=== PATIENT | female | born 1980 | race Caucasian/White ===

== ENCOUNTER 2019-03-31 20:52 | Observation (INO) ==
[2019-03-31 21:19] LABS: Basophils # 0.1 K/mm3 (0-0.2); Basophils % 0.9 % (0.1-2.0); Eosinophils # 0.3 K/mm3 (0.0-0.4); Eosinophils % 4.3 % (0.1-12.0); Hematocrit 35.5 % (37.0-47.0); Lymphocytes # 2.5 K/mm3 (0.7-4.5); Lymphocytes % 42.7 % (10-50); Mean Corpuscular HGB Conc 33.9 g/dL (31.8-35.4); Mean Corpuscular Volume 89.4 fl (81-99); Mean Platelet Volume 7.6 fl (7.4-10.4); Monocytes # 0.2 K/mm3 (0.1-1.0); Monocytes % 3.8 % (1.7-9.3); Neutrophils # 2.8 K/mm3 (1.8-7.8); Neutrophils % 48.3 % (37.0-80.0); Platelet Count 258 K/mm3 (142-424); Red Blood Count 3.97 M/mm3 (4.20-5.40); Red Cell Distribution Width 12.4 % (11.5-17.5); White Blood Count 5.8 K/mm3 (4.8-10.8)
--- NOTE | 2019-03-31 21:30 | Emergency Department Note ---
ED Disposition Clinical Impression: Incomplete Disposition: Admitted as Observation Condition on Discharge: Good - Critical Care Critical Care Time: No Attestation: On , the high probability of a clinically significant, sudden or life threatening deterioration of the following system(s) required my full and direct attention, intervention and personal management. The time I documented below is in addition to time spent performing reported procedures but includes the following listed in this critical care notation. Medical Decision Making - Medical Records Medical records reviewed: Yes: I reviewed the patient's medical records. - [place] Inquiry Pt receiving controlled substance: No Vital Signs: 03/31/19 20:54 03/31/19 22:28 Temperature 98.6 F Temperature Source Oral Pulse Rate [Left Radial] 88 Pulse Rate [Orthostatic Lying Left Radial] 83 Pulse Rate [Orthostatic Sitting Left Radial] 95 H Pulse Rate [Orthostatic Standing Left Radial] 107 H Respiratory Rate 18 Blood Pressure [Orthostatic Lying Right Arm] 93/54 L Blood Pressure [Orthostatic Sitting Right Arm] 87/59 L Blood Pressure [Orthostatic Standing Right Arm] 110/52 L Blood Pressure [Right Arm] 120/73 Blood Pressure Mean [Right Arm] 88 02 Sat by Pulse Oximetry 100 Oxygen Delivery Method Room Air - Lab Data Lab results reviewed: Yes: I reviewed the patient's lab results. Lab Results 03/31/19 21:00: WBC 5.8, RBC 3.97 L, Hgb 12.0 L, Hct 35.5 L, MCV 89.4, MCH 30.3, MCHC 33.9, RDW 12.4, Plt Count 258, MPV 7.6, Neut % (Auto) 48.3, Lymph % (Auto) 42.7, Dolores % (Auto) 3.8, Eos % (Auto) 4.3, Baso % (Auto) 0.9, Neut # (Auto) 2.8, Lymph # (Auto) 2.5, Dolores # (Auto) 0.2, Eos # (Auto) 0.3, Baso # (Auto) 0.1 03/31/19 21:00: Sodium 139, Potassium 3.5, Chloride 104, Carbon Dioxide 26, Anion Gap 12.5, BUN 16, Creatinine 0.92, Estimated Creat Clear 79, Estimated GFR 69, Est GFR ( Amer) 84, Glucose 159 H, Calcium 8.4 L, Total Bilirubin 0.4, AST 13 L, ALT 22, Alkaline Phosphatase 69, Total Protein 6.7, Albumin 3.6, Globulin 3.1, Albumin/Globulin Ratio 1.2, HCG, Quant 6341 H 03/31/19 21:00: Blood Type O Negative, Antibody Screen Negative 03/31/19 21:00: Serum HCG, Qual Positive 03/31/19 21:05: Blood Type O Negative, Antibody Screen Negative, Screen Cancelled, Baby's Rh Status Cancelled 03/31/19 22:18: Rhogam Infusion Rhogam release 03/31/19 22:44: WBC 8.2 D, RBC 3.31 L, Hgb 9.9 L D, Hct 29.1 L, MCV 87.8, MCH 29.8, MCHC 34.0, RDW 12.4, Plt Count 220, MPV 7.7, Neut % (Auto) 81.1 H, Lymph % (Auto) 14.8, Dolores % (Auto) 2.4, Eos % (Auto) 1.3, Baso % (Auto) 0.4, Neut # (Auto) 6.6, Lymph # (Auto) 1.2, Dolores # (Auto) 0.2, Eos # (Auto) 0.1, Baso # (Auto) 0.0 Result diagrams: 03/31/19 22:44 03/31/19 21:00 Orders (Tests/Meds): ED MEDICATIONS Generic Name Dose Route Start Last Admin Trade Name Freq PRN Reason Stop Dose Admin Rho Immune Globulin 0 unit 03/31/19 22:14 03/31/19 22:52 Rhogam Ultra-Filtered Plus IM 04/30/19 22:13 1,500 unit NEEDED PRN Administration For Rh Pre/ scrn resu ORDERS Category Date Time Status Urinalysis and Microscopic Stat Lab 03/31/19 21:01 Ordered US OB transvaginal Stat Ultrasound 03/31/19 21:11 Taken - US Data US Images: Pelvis ED US Reviewed: Yes: I discussed the US results w/the radiologist Findings Narrative: yolk sac just above cervix , no fetus or fht - Physician Consults Physician Consulted: cyn Reason -: Admission Female Urogenital HPI - General Chief complaint: Vaginal Bleeding Stated complaint: vaginal bleeding Time Seen by Provider: 03/31/19 21:05 Mode of Arrival: Ambulatory Source of Information: Patient, Spouse, Medical Record Limitations: No Limitations Description of Symptoms (Recalled from ER Triage Doc. by RN): patient states she thinks she is having a miscarriage. complains of vaginal bleeding for 2 weeks. today the bleeding became worse and she has had a lot of vaginal bleeding with cramps. patient states she has problems with hemorrhaging after giving to her children. - History of Present Illness HPI Narrative: pt with crampy abd pain with vag bleeding with hx of preg about 6-8 weeks - she is g10, p9 - saw water reuse program manager this am as she has had spotting over the the last week -no syncope MD Complaint: vaginal bleeding Onset (ago): hour(s) Radiation: suprapubic Severity: severe Quality: cramping Duration: intermittent Vaginal discharge: possible POC : yes Associated symptoms: denies other symptoms - Related Data : 10 Para: 9 Home Medications Medication Instructions Recorded Confirmed No Known Home Medications 03/31/19 03/31/19 Allergies Allergy/AdvReac Type Severity Reaction Status Date / Time No Known Allergies Allergy Verified 03/31/19 21:00 [facility] History - Hepatitis A Screen Drug use history?: No High risk sexual behaviors?: No History of sexually transmitted infection?: No Currently employed?: No Childcare worker?: No Do you have indoor plumbing?: No Do you have electricity?: No Attestation statement:: This patient has been screened for Hepatitis A risk factors. I have reviewed the patient's past medical history: Yes - Social History Alcohol Intake: never Occupational Status: other Housing: other Household Members: other ROS Obtained: Yes All systems reviewed & no additional complaints - Constitutional Constitutional: Denies fever(s) - Eyes Eyes: Denies change in vision - ENT Ears, Nose, Mouth, and Throat: Denies sore throat - Cardiovascular Cardiovascular: Denies chest pain - Respiratory Respiratory: No cough - Gastrointestinal Gastrointestingal: Denies: abdominal pain - Genitourinary Female Genitourinary: Reports as per HPI, Reports abnormal vaginal bleeding - Musculoskeletal Musculoskeletal: Denies joint pain, Denies joint swelling - Integumentary/Breasts Skin/Breast: Denies rash - Neurologic Neurologic: Denies seizure-like activity Physical Exam - General General appearance: alert, in no apparent distress - Head Head exam: normocephalic - Eye Eye exam: Present: PERRL, EOMI. Absent: scleral icterus - ENT ENT exam: Present: mucous membranes dry - Neck Neck exam: Present: trachea midline - Respiratory Respiratory exam: Absent: respiratory distress - Cardiovascular Cardiovascular exam: Present: regular rate - Abdominal Exam Abdominal exam: Present: soft - Speculum exam: Present: vaginal bleeding, other (open os with clot ) - Extremities Exam Extremities exam: Present: full ROM. Absent: calf tenderness - Neurological Exam Neurological exam: Present: alert, CN II-XII intact - Psychiatric Psychiatric exam: Present: normal affect - Skin Skin exam: Absent: rash
[2019-03-31 21:52] LABS: Albumin Level 3.6 gm/dL (3.4-5.0); Albumin/Globulin Ratio 1.2 (1.1-1.8); Anion Gap 12.5 mEq/L (5-15); Bilirubin,Total 0.4 mg/dL (0.2-1.0); Calcium 8.4 mg/dL (8.5-10.1); Globulin 3.1 gm/dl (1.3-3.2); Total Protein,Serum 6.7 gm/dL (6.4-8.2)
[2019-03-31 22:53] LABS: Basophils % 0.4 % (0.1-2.0); Eosinophils # 0.1 K/mm3 (0.0-0.4); Eosinophils % 1.3 % (0.1-12.0); Hematocrit 29.1 % (37.0-47.0); Lymphocytes # 1.2 K/mm3 (0.7-4.5); Lymphocytes % 14.8 % (10-50); Mean Corpuscular Volume 87.8 fl (81-99); Mean Platelet Volume 7.7 fl (7.4-10.4); Monocytes # 0.2 K/mm3 (0.1-1.0); Monocytes % 2.4 % (1.7-9.3); Neutrophils # 6.6 K/mm3 (1.8-7.8); Neutrophils % 81.1 % (37.0-80.0); Platelet Count 220 K/mm3 (142-424); Red Blood Count 3.31 M/mm3 (4.20-5.40); Red Cell Distribution Width 12.4 % (11.5-17.5); White Blood Count 8.2 K/mm3 (4.8-10.8)
[2019-03-31 22:56] LABS: Hemoglobin 9.9 g/dL (12.2-16.2)
[2019-03-31 23:40] LABS: Hematocrit 27.3 % (37.0-47.0); Hemoglobin 9.3 g/dL (12.2-16.2)
[2019-04-01 05:13] LABS: Basophils % 0.4 % (0.1-2.0); Eosinophils % 0.8 % (0.1-12.0); Lymphocytes % 26.7 % (10-50); Mean Corpuscular Volume 90.9 fl (81-99); Mean Platelet Volume 9.7 fl (7.4-10.4); Monocytes # 0.1 K/mm3 (0.1-1.0); Monocytes % 3.8 % (1.7-9.3); Neutrophils # 2.5 K/mm3 (1.8-7.8); Neutrophils % 68.3 % (37.0-80.0); Platelet Count 170 K/mm3 (142-424); Red Cell Distribution Width 12.5 % (11.5-17.5); White Blood Count 3.7 K/mm3 (4.8-10.8)
[2019-04-01 05:17] LABS: Hematocrit 22.7 % (37.0-47.0); Hemoglobin 7.5 g/dL (12.2-16.2)
[2019-04-01 06:55] LABS: Microscopic, Urine URINE MICROSCOPIC (MICROSCOPIC)
[2019-04-01 07:06] LABS: Appearance,Urine CLOUDY (Clear); Bilirubin,Urine Negative (Negative); Blood, Urine 3+ (Negative); Color,Urine RED (Yellow); Glucose,Urine (UA) Negative (Negative); Ketones,Urine TRACE (Negative); Leukocyte Esterase,Urine TRACE (Negative); PH,Urine 6.5 (5.0-8.5); Protein,Urine 3+ (Negative)
--- NOTE | 2019-04-01 07:49 | Pharmacy Consult Notes ---
[facility] VTE Monitoring - Patient Demographics Admission date: 03/31/19 Report Date: 04/01/19 Time: 07:49 Allergies/Adverse Reactions: Patient Allergies No Known Allergies Allergy (Verified 03/31/19 21:00) Height: 1.52 m Weight: 58.23 kg Patient Problems: Current Active Problems Incomplete (Acute) - VTE Risk Labs: VTE Related Lab Results Hgb 7.5 g/dL (12.2-16.2) L* 04/01/19 05:00 Hct 22.7 % (37.0-47.0) L* 04/01/19 05:00 Plt Count 170 K/mm3 (142-424) 04/01/19 05:00 BUN 16 mg/dL (7-18) 03/31/19 21:00 Creatinine 0.92 mg/dL (0.55-1.02) 03/31/19 21:00 Estimated Creat Clear 79 mL/min (50-200) 03/31/19 21:00 VTE Score: 0 - Prophylaxis VTE Prophylaxis Ordered?: Yes Types of VTE Prophylaxis: TEDS Knee High Location of Applied Device: Bilateral Lower Extremeties - VTE Diagnosis Confirmed Treatment or plan recommended: Continue Current Treatment
[2019-04-01 08:00] LABS: Bacteria,Urine 1+ /lpf; RBC,Urine TNTC #/hpf (0-3); WBC,Urine Occasional #/hpf (0-3)
--- NOTE | 2019-04-01 09:03 | History & Physical Report ---
*Admission Date: 03/31/19 *Chief complaint: vaginal bleeding *History of present illness: 38 yo @ approximately 8 wks by LMP [place] patient with care through local community relations director Presented with vaginal bleeding approximately 2 weeks ago, and reports passing clots somewhat daily She was referred for a consultation with an retail bakery manager in [place] for today, but began bleeding so heavily yesterday that she presented to the ED at [facility] Initial ultrasound showed a intrauterine gestational sac with a pole measuring 6 wks, but no cardiac activity Moderate drop in Hgb was noted, and she was admitted for observation (12.0 to 9.9) Rh negative status was treated with rhogam Bleeding continued to be moderate throughout the night, and repeat ultrasound this am shows gestational sac still present in uterus Hgb level 0500 dropped to 7.5 and she is being transfused 2 units PRBCs [facility] History I have reviewed the patient's past medical history: Yes *Have you ever received a pneumonia vaccine?: No *Have you received a flu vaccine this season?: No Other Medical History: Reports: Anemia - *Social History Smoking Status: Never smoker Alcohol Intake: never *Occupational Status:: other Housing: other Household Members: other *Travel in the last 8 weeks: Inside the [facility] Family Hx:: Anemia, Cancer, Heart Attack, Hyperlipidemia, Hypertension, Stroke, Thyroid Disorder : 10 Para: 9 LMP comments: Review of Systems - Review of Systems CONSTITUTIONAL: no fever/chills HEENT: no oral lesions PULMONARY: no shortness of breath or difficulty breathing CV: no racing heart, palpitations or chest pain ABD: no abdominal pain, N/V : + moderate vaginal bleeding SKIN: no new rash or skin lesions EXT: no edema NEURO: no mental status changes PSYCH: no anxiety/depression - *Neurologic Denies seizure-like activity Meds Home Medications Medication Instructions Recorded Confirmed Type Pnv No.95/Ferrous Fum/Folic AC 1 each PO DAILY 04/01/19 04/01/19 History [ Vitamin Tablet] Allergies Allergy/AdvReac Type Severity Reaction Status Date / Time No Known Allergies Allergy Verified 03/31/19 21:00 Exam Vital signs and Labs for Last 24 Hours: Temp Pulse Resp BP Pulse Ox 98.6 F 77 20 90/56 L 99 04/01/19 08:52 04/01/19 08:52 04/01/19 08:52 04/01/19 08:52 04/01/19 08:52 Laboratory Results - last 24 hr 03/31/19 21:00: WBC 5.8, RBC 3.97 L, Hgb 12.0 L, Hct 35.5 L, MCV 89.4, MCH 30.3, MCHC 33.9, RDW 12.4, Plt Count 258, MPV 7.6, Neut % (Auto) 48.3, Lymph % (Auto) 42.7, Brooks % (Auto) 3.8, Eos % (Auto) 4.3, Baso % (Auto) 0.9, Neut # (Auto) 2.8, Lymph # (Auto) 2.5, Brooks # (Auto) 0.2, Eos # (Auto) 0.3, Baso # (Auto) 0.1 03/31/19 21:00: Sodium 139, Potassium 3.5, Chloride 104, Carbon Dioxide 26, Anion Gap 12.5, BUN 16, Creatinine 0.92, Estimated Creat Clear 79, Estimated GFR 69, Est GFR ( Amer) 84, Glucose 159 H, Calcium 8.4 L, Total Bilirubin 0.4, AST 13 L, ALT 22, Alkaline Phosphatase 69, Total Protein 6.7, Albumin 3.6, Globulin 3.1, Albumin/Globulin Ratio 1.2, HCG, Quant 6341 H 03/31/19 21:00: Blood Type O Negative, Antibody Screen Negative 03/31/19 21:00: Serum HCG, Qual Positive 03/31/19 21:05: Blood Type O Negative, Antibody Screen Negative, Screen Cancelled, Baby's Rh Status Cancelled, Crossmatch (AHG) See Detail 03/31/19 22:18: Rhogam Infusion Rhogam release 03/31/19 22:44: WBC 8.2 D, RBC 3.31 L, Hgb 9.9 L D, Hct 29.1 L, MCV 87.8, MCH 29.8, MCHC 34.0, RDW 12.4, Plt Count 220, MPV 7.7, Neut % (Auto) 81.1 H, Lymph % (Auto) 14.8, Brooks % (Auto) 2.4, Eos % (Auto) 1.3, Baso % (Auto) 0.4, Neut # (Auto) 6.6, Lymph # (Auto) 1.2, Brooks # (Auto) 0.2, Eos # (Auto) 0.1, Baso # (Auto) 0.0 03/31/19 23:38: Hgb 9.3 L, Hct 27.3 L 04/01/19 00:00: Blood Type Confirm O Negative 04/01/19 05:00: WBC 3.7 L D, RBC 2.50 L, Hgb 7.5 L*, Hct 22.7 L*, MCV 90.9, MCH 30.0, MCHC 33.0, RDW 12.5, Plt Count 170, MPV 9.7, Neut % (Auto) 68.3, Lymph % (Auto) 26.7, Brooks % (Auto) 3.8, Eos % (Auto) 0.8, Baso % (Auto) 0.4, Neut # (Auto) 2.5, Lymph # (Auto) 1.0, Brooks # (Auto) 0.1, Eos # (Auto) 0.0, Baso # (Auto) 0.0 04/01/19 06:45: Urine Color Red, Urine Appearance Cloudy, Urine pH 6.5, Ur Specific Sullivan 1.020, Urine Protein 3+, Urine Glucose (UA) Negative, Urine Ketones Trace, Urine Blood 3+, Urine Nitrate Positive, Urine Bilirubin Negative, Urine Urobilinogen 1.0, Ur Leukocyte Esterase Trace, Urine RBC Tntc, Urine WBC Occasional, Ur Squamous Epith Cells None, Urine Bacteria 1+ I & O for Last 24 hours: Intake & Output 03/29/19 03/30/19 03/31/19 04/01/19 11:59 11:59 11:59 11:59 Intake Total 5625.61 / 5625.61 Output Total 1800 / 1800 Balance 3825.61 / 3825.61 Weight 128 lb 6 oz Narrative: CONSTITUTIONAL: no acute distress HEENT: mucous membranes moist PULMONARY: breathing unlabored without audible wheezes CV: no visible JVD; normal LE peripheral pulses ABD: soft, NT/ND, no guarding. Gravid uterus. : cervix closed SKIN: no visible rash or lesions HEME: no lymphadenopathy EXT: no edema LEs NEURO: alert/oriented, no altered mental status PSYCH: appropriate mood and demeanor without visible anxiety/depression Assessment and Plan - Assessment and plan all Dx Assessment and Plan for all problems:: Intrauterine with unconfirmed viability status, but likely non-viable with incomplete Anemia secondary to acute blood loss Patient is currently being transfused 2 units PRBCs and may require surgical intervention with D&C Will repeat quantitative HCG with post-transfusion Hgb for patient request to confirm non-viable
[2019-04-01 10:23] LABS: Hematocrit 30.4 % (37.0-47.0)
[2019-04-01 10:34] LABS: Hemoglobin 10.3 g/dL (12.2-16.2)
--- NOTE | 2019-04-01 11:25 | Progress Note ---
[facility] Anesthesia Checklist - Patient Identification Patient Identification: Arm Band, Verbal (Name & ) - Structural Data Admitted From: Inpatient Planned Operative Procedure/s: d and c Consent for Planned Operative Procedure(s) Verified: Yes Verified Documents: History and Physical - NPO Status Verified Time NPO: 00:00 - Additional verifications Patient : No Anesthesia Reactions: No Hx Blood Transfusions: No Blood Transfusion Reaction: No Cephalosporin Allergy: No Previous Colonoscopy: No - Cardiovascular Assessment Heart Sounds: S1 & S2 Pulse Strength: Baseline Pulse Rhythm: Regular Peripheral Edema: No - Airway Assessment C-Spine Mobility Assessed: Yes TMJ Mobility Assessed: Yes Dentition: Good Dentition - Neurological Assessment Level of Consciousness: Awake, Alert, Appropriate Hx Seizures: No Numbness or tingling in extremities: No - Anesthesia Plan Anesthesia Risk discussed: Yes Anesthesia Plan: Verified ASA Class: I Anesthesia Type: General [facility] History I have reviewed the patient's past medical history: Yes *Have you ever received a pneumonia vaccine?: No *Have you received a flu vaccine this season?: No Other Medical History: Reports: Anemia Anesthesia experience/problems:: none - *Social History Smoking Status: Never smoker Alcohol Intake: never Substance Use Type: other *Occupational Status:: other Housing: other Household Members: other *Travel in the last 8 weeks: Inside the [facility] Family Hx:: Anemia, Cancer, Heart Attack, Hyperlipidemia, Hypertension, Stroke, Thyroid Disorder Para: 9 LMP comments:
--- NOTE | 2019-04-01 12:26 | Progress Note ---
[facility] Anesthesia Record Part I Intake, IV Amount: 900 Estimated blood loss (mL): 200 Urine output (mL): 300 Blood Products used (#): none Blood Pressure: 96/57 SaO2: 96 Pulse Rate: 92 Respiratory Rate: 12 Temperature: 98.0 F Patient is:: Drowsy, Stable Stable to PACU at:: 12:22
--- NOTE | 2019-04-01 13:28 | Operative Note ---
Date of procedure: 04/01/19 Pre-op Diagnosis:: 1. Incomplete 2. anemia secondary to acute blood loss Post-op Diagnosis:: same Procedure performed:: Suction D & C Surgeon:: Nakia Victoria MD EXECUTIVE OFFICER:: Que Ramirez Anesthesia: GETA Estimated blood loss (mL): 200 Operative findings:: products of conception at level of cervical os Operative note:: The patient was taken to the OR and general anesthesia administered without difficulty. She was prepped and draped in lithotomy position. Lopez retractors were used to visualize the cervix and a single tooth tenaculum placed on the anterior lip of the cervix. The cervix did not need to be mechanically dilated because the POC had distended the cervix sufficiently to accomodate the suction curette. A size # 7 curved curette was used to evacuate the contents of the uterus. Once the products of conception had been evacuated, sharp curettage was used to ensure that no products remained within the uterine cavity. All instruments were then removed from the patients vagina, she was taken out of lithotomy position, awakened from anesthesia and taken to the PACU in stable condition. EBL: 200cc Condition: stable Disposition: PACU Specimens:: Products of conception Complications:: none
--- NOTE | 2019-04-01 13:47 | Discharge Summary ---
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 Presented with vaginal bleeding approximately 2 weeks ago, and reports passing clots somewhat daily She was referred for a consultation with an mammography technologist in [facility] for today, but began bleeding so heavily yesterday that she presented to the ED at [facility] Initial ultrasound showed a intrauterine gestational sac with a pole measuring 6 wks, but no cardiac activity Moderate drop in Hgb was noted, and she was admitted for observation (12.0 to 9.9) Rh negative status was treated with rhogam Bleeding continued to be moderate throughout the night, and repeat ultrasound this am shows gestational sac still present in uterus Hgb level 0500 dropped to 7.5 and she is being transfused 2 units PRBCs She was taken for suction D&C on 04/01/19 Hospital Course Hospital Course: per HPI Objective Vital signs: Temp Pulse Resp BP Pulse Ox 98.0 F 92 H 12 96/57 L 100 04/01/19 12:26 04/01/19 12:26 04/01/19 12:26 04/01/19 12:26 04/01/19 10:05 Narrative: CONSTITUTIONAL: no acute distress HEENT: mucous membranes moist PULMONARY: breathing unlabored without audible wheezes CV: no tachycardia or visible JVD; normal LE peripheral pulses ABD: soft, ND; appropriately tender but no rebound/guarding : within normal limits SKIN: incision well approximated with no drainage, erythema or induration EXT: no edema LEs NEURO: alert/oriented, no altered mental status PSYCH: appropriate mood and demeanor without anxiety/depression Results Labs on day of discharge: Labs from last 24 hours 04/01/19 04/01/19 04/01/19 10:15 10:15 06:45 WBC RBC Hgb 10.3 L D Hct 30.4 L MCV MCH MCHC RDW Plt Count MPV Neut % (Auto) Lymph % (Auto) [place] % (Auto) Eos % (Auto) Baso % (Auto) Neut # (Auto) Lymph # (Auto) [place] # (Auto) Eos # (Auto) Baso # (Auto) Sodium Potassium Chloride Carbon Dioxide Anion Gap BUN Creatinine Estimated Creat Clear Estimated GFR Est GFR ( Amer) Glucose Calcium Total Bilirubin AST ALT Alkaline Phosphatase Total Protein Albumin Globulin Albumin/Globulin Ratio Serum HCG, Qual HCG, Quant 2741 H Urine Color Red Urine Appearance Cloudy Urine pH 6.5 Ur Specific [place] 1.020 Urine Protein 3+ Urine Glucose (UA) Negative Urine Ketones Trace Urine Blood 3+ Urine Nitrate Positive Urine Bilirubin Negative Urine Urobilinogen 1.0 Ur Leukocyte Esterase Trace Urine RBC Tntc Urine WBC Occasional Ur Squamous Epith Cells None Urine Bacteria 1+ Blood Type Blood Type Confirm Antibody Screen Screen Baby's Rh Status Rhogam Infusion Crossmatch ([facility]) 04/01/19 04/01/19 03/31/19 05:00 00:00 23:38 WBC 3.7 L D RBC 2.50 L Hgb 7.5 L* 9.3 L Hct 22.7 L* 27.3 L MCV 90.9 MCH 30.0 MCHC 33.0 RDW 12.5 Plt Count 170 MPV 9.7 Neut % (Auto) 68.3 Lymph % (Auto) 26.7 [place] % (Auto) 3.8 Eos % (Auto) 0.8 Baso % (Auto) 0.4 Neut # (Auto) 2.5 Lymph # (Auto) 1.0 [place] # (Auto) 0.1 Eos # (Auto) 0.0 Baso # (Auto) 0.0 Sodium Potassium Chloride Carbon Dioxide Anion Gap BUN Creatinine Estimated Creat Clear Estimated GFR Est GFR ( Amer) Glucose Calcium Total Bilirubin AST ALT Alkaline Phosphatase Total Protein Albumin Globulin Albumin/Globulin Ratio Serum HCG, Qual HCG, Quant Urine Color Urine Appearance Urine pH Ur Specific [place] Urine Protein Urine Glucose (UA) Urine Ketones Urine Blood Urine Nitrate Urine Bilirubin Urine Urobilinogen Ur Leukocyte Esterase Urine RBC Urine WBC Ur Squamous Epith Cells Urine Bacteria Blood Type Blood Type Confirm O Negative Antibody Screen Screen Baby's Rh Status Rhogam Infusion Crossmatch ([facility]) 03/31/19 03/31/19 03/31/19 22:44 22:18 21:05 WBC 8.2 D RBC 3.31 L Hgb 9.9 L D Hct 29.1 L MCV 87.8 MCH 29.8 MCHC 34.0 RDW 12.4 Plt Count 220 MPV 7.7 Neut % (Auto) 81.1 H Lymph % (Auto) 14.8 [place] % (Auto) 2.4 Eos % (Auto) 1.3 Baso % (Auto) 0.4 Neut # (Auto) 6.6 Lymph # (Auto) 1.2 [place] # (Auto) 0.2 Eos # (Auto) 0.1 Baso # (Auto) 0.0 Sodium Potassium Chloride Carbon Dioxide Anion Gap BUN Creatinine Estimated Creat Clear Estimated GFR Est GFR ( Amer) Glucose Calcium Total Bilirubin AST ALT Alkaline Phosphatase Total Protein Albumin Globulin Albumin/Globulin Ratio Serum HCG, Qual HCG, Quant Urine Color Urine Appearance Urine pH Ur Specific [place] Urine Protein Urine Glucose (UA) Urine Ketones Urine Blood Urine Nitrate Urine Bilirubin Urine Urobilinogen Ur Leukocyte Esterase Urine RBC Urine WBC Ur Squamous Epith Cells Urine Bacteria Blood Type O Negative Blood Type Confirm Antibody Screen Negative Screen Cancelled Baby's Rh Status Cancelled Rhogam Infusion Rhogam release Crossmatch ([facility]) See Detail 03/31/19 03/31/19 03/31/19 21:00 21:00 21:00 WBC RBC Hgb Hct MCV MCH MCHC RDW Plt Count MPV Neut % (Auto) Lymph % (Auto) [place] % (Auto) Eos % (Auto) Baso % (Auto) Neut # (Auto) Lymph # (Auto) [place] # (Auto) Eos # (Auto) Baso # (Auto) Sodium 139 Potassium 3.5 Chloride 104 Carbon Dioxide 26 Anion Gap 12.5 BUN 16 Creatinine 0.92 Estimated Creat Clear 79 Estimated GFR 69 Est GFR ( Amer) 84 Glucose 159 H Calcium 8.4 L Total Bilirubin 0.4 AST 13 L ALT 22 Alkaline Phosphatase 69 Total Protein 6.7 Albumin 3.6 Globulin 3.1 Albumin/Globulin Ratio 1.2 Serum HCG, Qual Positive HCG, Quant 6341 H Urine Color Urine Appearance Urine pH Ur Specific [place] Urine Protein Urine Glucose (UA) Urine Ketones Urine Blood Urine Nitrate Urine Bilirubin Urine Urobilinogen Ur Leukocyte Esterase Urine RBC Urine WBC Ur Squamous Epith Cells Urine Bacteria Blood Type O Negative Blood Type Confirm Antibody Screen Negative Screen Baby's Rh Status Rhogam Infusion Crossmatch ([facility]) 03/31/19 21:00 WBC 5.8 RBC 3.97 L Hgb 12.0 L Hct 35.5 L MCV 89.4 MCH 30.3 MCHC 33.9 RDW 12.4 Plt Count 258 MPV 7.6 Neut % (Auto) 48.3 Lymph % (Auto) 42.7 [place] % (Auto) 3.8 Eos % (Auto) 4.3 Baso % (Auto) 0.9 Neut # (Auto) 2.8 Lymph # (Auto) 2.5 [place] # (Auto) 0.2 Eos # (Auto) 0.3 Baso # (Auto) 0.1 Sodium Potassium Chloride Carbon Dioxide Anion Gap BUN Creatinine Estimated Creat Clear Estimated GFR Est GFR ( Amer) Glucose Calcium Total Bilirubin AST ALT Alkaline Phosphatase Total Protein Albumin Globulin Albumin/Globulin Ratio Serum HCG, Qual HCG, Quant Urine Color Urine Appearance Urine pH Ur Specific [place] Urine Protein Urine Glucose (UA) Urine Ketones Urine Blood Urine Nitrate Urine Bilirubin Urine Urobilinogen Ur Leukocyte Esterase Urine RBC Urine WBC Ur Squamous Epith Cells Urine Bacteria Blood Type Blood Type Confirm Antibody Screen Screen Baby's Rh Status Rhogam Infusion Crossmatch ([facility]) DS: Diagnosis - Discharge Diagnosis (1) Incomplete Status: Acute (2) with care elsewhere Status: Acute (3) Grand multiparity Status: Acute (4) Rh negative status during Status: Acute (5) Anemia associated with acute blood loss Status: Acute Discharge Plan - Patient Discharge Instructions ACTIVITY: Continue current activity DIET: regular diet Patient Instructions: Dilation and Curettage, Anemia, DI for Miscarriage, DI for a Dilation and Curettage - Follow up Plan Follow up with: Nakia Victoria MD [Staff Physician] - Disposition: Home, Self-Longterm Medications: Home Medications Medication Instructions Recorded Confirmed Type Pnv No.95/Ferrous Fum/Folic AC 1 each PO DAILY 04/01/19 04/01/19 History [ Vitamin Tablet] Prescriptions/Medication Reconciliation: Continued Pnv No.95/Ferrous Fum/Folic AC [ Vitamin Tablet] 1 each PO DAILY - Problem Reconciliation Problems Reviewed?: Yes
--- NOTE | 2019-04-01 14:00 | Progress Note ---
[facility] Anesthesia Record Part II Discharge Time: 12:52 Destination: Obstetric Gynecology Dept PACU nurse assessment reviewed?: Yes Patient Condition:: Good Anesthesia Complications:: None Swallowing reflex intact?: Yes Cyanosis?: No Blood Pressure: 120/63 Pulse Rate: 65 Temperature: 98.0 F Mental Status: Alert & Oriented Pain level:: 2 Nausea and/or vomitting:: None Intake, IV Amount: 0
== END 2019-04-01 15:21 | disposition home or self-care (01) ==
LOC: ER 20:52 → 2ND 20:52
PROVIDERS: ADMIT Obstetrics & Gynecology; ATTEND Obstetrics & Gynecology
CPT/HCPCS: 36415; 76817; 80053; 81001; 84702; 84703; 85014; 85018; 85025; 86850; 96365; 96367; 96372; 96374; 99284; G0378; J2405; J2790; P9016; S0077

== ENCOUNTER → 2020-02-21 16:19 | Outpatient (CLI) | payer SELFPAY | PROVIDERS: Visit Provider Obstetrics & Gynecology | DX: O09.30 Supervision of pregnancy with insufficient antenatal care, unspecified trimester (principal); O32.1XX0 Maternal care for breech presentation, not applicable or unspecified; Z3A.37 37 weeks gestation of pregnancy | CPT/HCPCS: 86403 ==

== ENCOUNTER 2020-02-27 08:10 | Inpatient (IN) | payer SELFPAY ==
[2020-02-27] VITALS (9 sets, daily range): BP systolic 95–127; BP diastolic 51–69; PULSE 63–89; RESP 16–20; TEMP 36–36.9; O2SAT 97–100; BMI 28.5; BMI 28.6
--- NOTE | 2020-02-27 06:05 | US_ITS ---
PROCEDURE: US OB LIMITED POSITION CLINICAL INDICATION: labor Evaluate position. Patient in labor COMPARISON: US US OB TRANSVAGINAL from 04/01/2019 FINDINGS: Limited images submitted. There is breech presentation. The placenta is anterior. TITO is 12 cm. The fetus was not adequately imaged for comment. IMPRESSION: Breech presentation Dictated by: Cesar Delacruz MD 02/27/2020 11:08 Cesar Delacruz MD in OV 02/27/2020 11:08
[2020-02-27 07:23] LABS: Microscopic, Urine URINE MICROSCOPIC (MICROSCOPIC)
--- NOTE | 2020-02-27 07:24 | HMH.ACPN2 ---
Internal Medicine - PN: Subj *Date: 02/27/20 *Time: 07:24 (This 39-year-old 11 para 9 Ab1 [employer] female presents at 38-3/7 weeks in early labor with moderate contractions. She was scheduled for a primary on 03/02/2020 because of a breech presentation, which is confirmed by ultrasound this morning. She states that she has hemorrhaged after each delivery in the past. Her cervix is 5 cm dilated. Discussed this with the patient and her and the plan is for a primary this morning. He is known to be type O Rh-. Because of her past history, she will be typed and crossed. Her current lab work is pending, including Covid screen.) Exam I & O for Last 24 hours: Intake & Output 02/24/20 02/25/20 02/26/20 02/27/20 11:59 11:59 11:59 11:59 Weight 146 lb
[2020-02-27 07:25] LABS: Appearance,Urine CLEAR (Clear); Bilirubin,Urine Negative (Negative); Blood, Urine Negative (Negative); Color,Urine YELLOW (Yellow); Glucose,Urine (UA) Negative (Negative); Ketones,Urine Negative (Negative); Leukocyte Esterase,Urine Negative (Negative); Nitrate,Urine Negative (Negative); Protein,Urine Negative (Negative); Urobilinogen,Urine 0.2 EU/dl (0.2)
[2020-02-27 07:37] LABS: Amphetamine/Metha Screen,Urine Negative ng/ml (<1000); Barbiturates Screen,Urine Negative ng/ml (<200)
[2020-02-27 07:38] LABS: Benzodiazepines Screen,Urine Negative ng/ml (<200)
[2020-02-27 07:39] LABS: Cannabinoid Screen,Urine Negative ng/ml (<50); Cocaine Screen,Urine Negative ng/ml (<300)
[2020-02-27 07:40] LABS: Methadone Screen,Urine Negative ng/ml (<300)
[2020-02-27 07:41] LABS: Basophils % 0.3 % (0.1-2.0); Eosinophils # 0.1 K/mm3 (0.0-0.4); Eosinophils % 1.9 % (0.1-12.0); Hematocrit 34.1 % (37.0-47.0); Hemoglobin 11.1 g/dL (12.2-16.2); Lymphocytes # 1.3 K/mm3 (0.7-4.5); Lymphocytes % 28.2 % (10-50); Mean Corpuscular HGB Conc 32.5 g/dL (31.8-35.4); Mean Corpuscular Hemoglobin 29.5 pg (27.0-31.2); Mean Corpuscular Volume 90.9 fl (81-99); Mean Platelet Volume 7.7 fl (7.4-10.4); Monocytes # 0.2 K/mm3 (0.1-1.0); Neutrophils # 3.1 K/mm3 (1.8-7.8); Neutrophils % 65.7 % (37.0-80.0); Platelet Count 210 K/mm3 (142-424); Red Blood Count 3.75 M/mm3 (4.20-5.40); Red Cell Distribution Width 13.4 % (11.5-17.5); White Blood Count 4.8 K/mm3 (4.8-10.8)
[2020-02-27 07:41] LABS: Opiate Screen,Urine Negative ng/ml (<300); Phencyclidine Screen,Urine Negative ng/ml (<25)
[2020-02-27 07:44] LABS: Activated Partial Thrombo Time 24.9 seconds (23.6-34.0); INR 0.97 (0.9-1.1); Prothrombin Time 10.8 seconds (9.4-11.8)
[2020-02-27 07:48] LABS: WBC,Urine Occasional #/hpf (0-3)
[2020-02-27 07:49] LABS: Bacteria,Urine 1+ /lpf; Yeast,Urine 1+ /lpf
[2020-02-27 07:54] LABS: Coronavirus 19 IgG Antibody Negative (Negative); Coronavirus 19 IgM Antibody Negative (Negative)
[2020-02-27 09:01] LABS: Cord Blood PH 7.34 (7.35-7.45)
--- NOTE | 2020-02-27 09:33 | HMH.OPNOTE ---
Date of procedure: 02/27/20 (G 11, now P 10, Ab1 Kendrick female. Breech presentation. In labor.) Pre-op Diagnosis:: 1. Term intrauterine . 2. Grand multiparity. 3. Breech presentation. 4. Active labor. Post-op Diagnosis:: Same, 70 male (weight in length pending) born by breech extraction at 0850. Procedure performed:: Primary low transverse cervical section. Breech extraction. Surgeon:: Maged Reece MD Penology Professor(s):: Dr. Cristina. HEAD OF MARKETING ADOMETRY:: Rodolfo Marie Anesthesia: spinal Estimated blood loss (mL): 400 Operative findings:: Term intrauterine , anne marie breech presentation. Operative note:: After the patient was prepped and draped in usual fashion and spinal anesthesia was administered, a low Pfannenstiel incision was made across the midline, and the fat and fascia was in the usual fashion, bleeders being clamped and coagulated along the way. The peritoneum was entered with Metzenbaum scissors, and extended above and below. The bladder peritoneum was sharply and bluntly dissected from the area of incision, and the bladder was protected with a bladder blade. The uterus was entered in a low transverse fashion with a knife, and the incision was extended bluntly, bilaterally. The amniotic sac was ruptured for clear fluid. The baby was found to be in a anne marie breech presentation and, with appropriate fundal pressure, a breech extraction was easily carried out. The cord was clamped and cut, 3 vessels were noted to be within the cord, and cord blood was obtained. The cord pH was 7.33. The baby was handed into the arms of the attending machine filler servicer, Dr. Perera, who assigned Apgars of 6 at 1 minute, 8 at 5 minutes, and 8 at 10 minutes to this male (weight in length pending). The baby was taken to the nursery in good condition, along with the father, who had been present in the operating room. The placenta was delivered manually, intact. A ring forceps was used to assure adequate drainage to the cervix; this was then passed off the field, as an unsterile instrument. The uterus was closed in 2 layers, the first a running locked suture of #1 Vicryl as an endometrial layer, followed by a running unlocked suture of #1 Vicryl as a myometrial layer, imbricating over the first. The bladder peritoneum was closed with a running unlocked suture of 2-0 Vicryl. Blood and clots were then swept from the gutters, and the tubes and ovaries were inspected and felt to be normal. The uterus was involuting well, with IV Pitocin running. The peritoneum was grasped with 3 Yusra clamps, and closed with a running semilocked suture of 0 Vicryl. The muscle was approximated with a running unlocked suture of 0 Vicryl. The fascia was closed with a running locked suture of #1 Vicryl. The subcutaneous fat and Cesar's fascia were closed with a running unlocked suture of 2-0 Vicryl. The skin was closed with a subcuticular suture of 3-0 Vicryl, and appropriately dressed. The sponge and needle counts correct. The estimated blood loss was 400 cc. The urine was clear in the Farris catheter. A pelvic examination at the close of the procedure expressed blood and clots from the involuting uterus, with IV Pitocin running. The uterus was noted to be involuting well. The patient tolerated the procedure well and was taken to PACU in excellent condition. Her blood type is O Rh-, and she will be worked up for Rh immunoglobulin eligibility. Her rubella titer is immune. She plans to breast-feed. It should be noted that her COVID-19 antibody screen was negative for IgG and IgM Condition: stable Disposition: floor Specimens:: None. Complications:: None.
--- NOTE | 2020-02-27 10:41 | HMH.ANESCL ---
[facility] Anesthesia Checklist - Patient Identification Patient Identification: Arm Band, Verbal (Name & ) - Structural Data Admitted From: Inpatient Planned Operative Procedure/s: c section Consent for Planned Operative Procedure(s) Verified: Yes Verified Documents: History and Physical - NPO Status Verified Time NPO: 00:00 - Chart Verification Results Verified: CBC - Additional verifications Patient : Yes Anesthesia Reactions: No Hx Blood Transfusions: No Blood Transfusion Reaction: No Cephalosporin Allergy: No Previous Colonoscopy: No - Cardiovascular Assessment Heart Sounds: S1 & S2 Pulse Strength: Baseline Pulse Rhythm: Regular Peripheral Edema: No - Airway Assessment C-Spine Mobility Assessed: Yes TMJ Mobility Assessed: Yes Dentition: Good Dentition - Neurological Assessment Level of Consciousness: Awake, Alert, Appropriate Hx Seizures: No Numbness or tingling in extremities: No - Anesthesia Plan Anesthesia Risk discussed: Yes Anesthesia Plan: Verified ASA Class: II Anesthesia Type: Spinal [facility] History Medical History: Denies:: Seizures *Have you ever received a pneumonia vaccine?: No *Have you received a flu vaccine this season?: No Other Medical History: Reports: Anemia. Denies: Blood Transfusion Reaction Anesthesia experience/problems:: none Other Surgeries: Yes: Dilation and Curettage Amputation: No Fractures: No - *Social History Smoking Status: Never smoker Alcohol Intake: never Substance Use Type: other, denies use *Occupational Status:: other Housing: other Household Members: other *Travel in the last 8 weeks: None Family Hx:: Anemia, Cancer, Heart Attack, Hyperlipidemia, Hypertension, Stroke, Thyroid Disorder
--- NOTE | 2020-02-27 11:31 | HMH.ANESI ---
[facility] Anesthesia Record Part I Intake, IV Amount: 1,450 Estimated blood loss (mL): 600 Urine output (mL): 100 Blood Products used (#): none Blood Pressure: 95/60 SaO2: 99 Pulse Rate: 89 Respiratory Rate: 20 Temperature: 97.7 F Patient is:: Awake, Stable Stable to PACU at:: 09:30
--- NOTE | 2020-02-27 11:32 | P.PN_ITS ---
[facility] Anesthesia Record Part II Discharge Time: 10:00 Destination: Obstetric PACU nurse assessment reviewed?: Yes Patient Condition:: Good Anesthesia Complications:: None Swallowing reflex intact?: Yes Cyanosis?: No Blood Pressure: 98/60 Pulse Rate: 74 Temperature: 97.7 F Mental Status: Alert & Oriented Pain level:: 0 Nausea and/or vomitting:: None Intake, IV Amount: 50
--- NOTE | 2020-02-27 11:36 | SUR.PHASEI ---
Pacu intervention documented by myself for Imtiaz Rice RN
--- NOTE | 2020-02-27 12:52 | HMH.PHAVTE ---
[facility] Pharmacy VTE Monitoring - Patient Demographics Admission date: 02/27/20 Report Date: 02/27/20 Time: 12:52 Allergies/Adverse Reactions: Patient Allergies No Known Allergies Allergy (Verified 02/21/20 10:32) Height: 1.52 m Weight: 66.224 kg - VTE Risk Labs: VTE Related Lab Results Hgb 11.1 g/dL (12.2-16.2) L 02/27/20 06:45 Hct 34.1 % (37.0-47.0) L 02/27/20 06:45 Plt Count 210 K/mm3 (142-424) 02/27/20 06:45 PT 10.8 seconds (9.4-11.8) 02/27/20 06:45 INR 0.97 (0.9-1.1) 02/27/20 06:45 APTT 24.9 seconds (23.6-34.0) 02/27/20 06:45 - Prophylaxis VTE Prophylaxis Ordered?: Yes Types of VTE Prophylaxis: IPCS Thigh High Location of Applied Device: Bilateral Lower Extremeties
[2020-02-27 16:18] LABS: Hematocrit 28.9 % (37.0-47.0)
[2020-02-27 16:20] LABS: Hemoglobin 9.9 g/dL (12.2-16.2)
[2020-02-28] VITALS: BP 94/55; PULSE 70; RESP 16; TEMP 36.8; O2SAT 98
[2020-02-28 04:20] VITALS: BP 96/56; PULSE 78; RESP 17; TEMP 36.8; O2SAT 99
[2020-02-28 05:57] LABS: Hematocrit 32.6 % (37.0-47.0)
[2020-02-28 06:27] LABS: Hemoglobin 11.4 g/dL (12.2-16.2)
[2020-02-28 15:51] VITALS: BP 104/60; PULSE 85; RESP 20; TEMP 36.8; O2SAT 99
--- NOTE | 2020-02-28 15:51 | P.PN_ITS ---
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 and are eager for discharge but have been informed that this will be deferred until tomorrow Exam Vital signs and Labs for Last 24 Hours: Temp Pulse Resp BP Pulse Ox 98.3 F 78 17 96/56 L 99 02/28/20 04:20 02/28/20 04:20 02/28/20 04:20 02/28/20 04:20 02/28/20 04:20 Laboratory Results - last 24 hr 02/27/20 15:58: Hgb 9.9 L D, Hct 28.9 L 02/28/20 05:18: Blood Type O Negative, Antibody Screen Positive, Screen Negative, Baby's Rh Status Positive 02/28/20 05:18: Hgb 11.4 L D, Hct 32.6 L 02/28/20 11:11: Rhogam Infusion Rhogam release I & O for Last 24 hours: Intake & Output 02/26/20 02/27/20 02/28/20 02/29/20 11:59 11:59 11:59 11:59 Intake Total 1500 / 1500 Balance 1500 / 1500 Weight 145 lb 15.983 oz Narrative: CONSTITUTIONAL: no acute distress HEENT: mucous membranes moist PULMONARY: breathing unlabored without audible wheezes CV: no tachycardia or visible JVD; normal LE peripheral pulses ABD: soft, ND; appropriately tender but no rebound/guarding : fundus firm at/below umbilicus SKIN: incision well approximated with no drainage, erythema or induration EXT: 1+ edema LEs NEURO: alert/oriented, no altered mental status PSYCH: appropriate mood and demeanor without anxiety/depression Assessment and Plan (1) Advanced maternal age in Status: Acute Category: Medical (2) Kendrick ancestry Status: Acute Category: Social Hx (3) Anemia complicating Status: Acute Category: Medical Code(s): O99.019 - Anemia complicating , unspecified trimester (4) Breech presentation Status: Acute Category: Medical Code(s): O32.1XX0 - Maternal care for breech presentation, not applicable or unspecified (5) Grand multiparity Problem details: Status: Acute Category: Medical Code(s): Z64.1 - Problems related to multiparity (6) History of hemorrhage Status: Acute Category: Medical Code(s): Z87.59 - Personal history of other complications of , childbirth and the puerperium (7) Late care Status: Acute Category: Medical Code(s): O09.30 - Supervision of with insufficient care, unspecified trimester (8) Rh negative status during Problem details: rhogam 12/29/19 Status: Acute Category: Medical Code(s): O26.899 - Other specified related conditions, unspecified trimester; Z67.91 - Unspecified blood type, Rh negative - Assessment and plan all Dx Assessment and Plan for all problems:: Routine postop care anticipate discharge home tomorrow
[2020-02-28 19:32] VITALS: BP 103/59; PULSE 87; RESP 16; TEMP 36.9; O2SAT 98
[2020-02-28 23:50] VITALS: BP 97/57; PULSE 82; RESP 16; TEMP 36.8; O2SAT 98
--- NOTE | 2020-02-29 08:39 | HMH.DCSUM ---
General - General Admission date:: 02/27/20 Discharge date: 02/29/20 Hospital Course Hospital Course: Patient presented in active labor 5cm dilation Ultrasound confirmed breech position and she was taken to the OR for primary c section Maternal course uncomplicated evaluation with diagnosis of trisomy 21 cardiac screening indicated need for further evaluation and will be seen by pediatric cardiology later today after discharge mother stable for discharge on POD #2 Tolerating regular diet, ambulating and voiding without difficulty Lochia less than menses with no pp hemorrhage mother does not think she needs prescription pain medication but is agreeable to 10 tablets of oxycodone at discharge Objective Vital signs: Temp Pulse Resp BP Pulse Ox 98.3 F 82 16 97/57 L 98 02/28/20 23:50 02/28/20 23:50 02/28/20 23:50 02/28/20 23:50 02/28/20 23:50 Narrative: CONSTITUTIONAL: no acute distress HEENT: mucous membranes moist PULMONARY: breathing unlabored without audible wheezes CV: no tachycardia or visible JVD; normal LE peripheral pulses ABD: soft, ND; appropriately tender but no rebound/guarding : fundus firm at/below umbilicus SKIN: incision well approximated with no drainage, erythema or induration EXT: 1+ edema LEs NEURO: alert/oriented, no altered mental status PSYCH: appropriate mood and demeanor without anxiety/depression Results Labs on day of discharge: Labs from last 24 hours 02/28/20 02/28/20 02/28/20 11:11 05:18 05:18 Blood Type O Negative Antibody Screen Positive Antibody Identification Pending Screen Negative Baby's Rh Status Positive Rhogam Infusion Rhogam release DS: Diagnosis - Discharge Diagnosis (1) Advanced maternal age in Status: Acute (2) Kendrick ancestry Status: Acute (3) Anemia complicating Status: Acute (4) Breech presentation Status: Acute (5) Grand multiparity Status: Acute Problem details: (6) History of hemorrhage Status: Acute (7) Late care Status: Acute (8) Rh negative status during Status: Acute Problem details: rhogam 12/29/19 Discharge Plan - Patient Discharge Instructions ACTIVITY: Continue current activity DIET: regular diet Additional Instructions: No heavy lifting. Nothing in the vagina for 6 weeks. Patient Instructions: Depression, Hemorrhage, DI for , DI for Pre-eclampsia, DI for Surgical Site Infection, [facility] Post Discharge Instructions, Preventing the Spread of Coronavirus Discharge Instructions - Follow up Plan Disposition: Home, Self-Assisted Medications: Home Medications Medication Instructions Recorded Confirmed Type Pnv No.95/Ferrous Fum/Folic AC 1 each PO DAILY 04/01/19 02/27/20 History [ Vitamin Tablet] Prescriptions/Medication Reconciliation: New Acetaminophen [Acetaminophen 325mg tab] 650 mg PO Q4HP PRN tablet PRN Reason: Mild Pain Ibuprofen [Motrin 400mg tablet] 800 mg PO Q6HP PRN tablet PRN Reason: Mild To Moderate Pain Continued Pnv No.95/Ferrous Fum/Folic AC [ Vitamin Tablet] 1 each PO DAILY - Problem Reconciliation Problems Reviewed?: Yes
[2020-02-29 08:44] VITALS: BP 111/74; PULSE 96; RESP 20; TEMP 36.8; O2SAT 98
== END 2020-02-29 09:45 | disposition home or self-care (01) | DRG 788 ==
LOC: OBOUT 08:10 → OB 08:10
PROVIDERS: Admitting Provider Obstetrics & Gynecology; PCP Nurse Practitioner Family; Visit Provider Obstetrics & Gynecology
PROC: 10D00Z1 Extraction of Products of Conception, Low, Open Approach (ICD-10-PCS; CPT 59514; principal; 2020-02-27 09:30)
DX: O32.1XX0 Maternal care for breech presentation, not applicable or unspecified (principal); Z3A.38 38 weeks gestation of pregnancy; Z37.0 Single live birth; Z23 Encounter for immunization
CPT/HCPCS: 59514; 96372; 90384; 36415; 59025; 76815; 80305; 81001; 82800; 85014; 85018; 85025; 85461; 85610; 85730; 86328; 86850; 86870; J2405; J2790

== ENCOUNTER 2021-05-25 20:00 | Emergency (ER) | payer SELFPAY ==
[2021-05-25] VITALS (9 sets, daily range): BP systolic 96–164; BP diastolic 62–88; PULSE 78–87; RESP 16–20; TEMP 36.6–36.7; O2SAT 97–99; BMI 53.8
--- NOTE | 2021-05-25 19:59 | ECG_ITS ---
APPROVED REPORT Exam: Resting ECG HR:89 bpm ECG Measurements Heart Rate 89 AXES PA 136 P 78 QRSd 88 QRS 75 QT 355 T 64 QTc 402 Conclusion SINUS RHYTHM NONSPECIFIC T-WAVE ABNORMALITY BORDERLINE ECG UNCONFIRMED REPORT Electronically signed by : Rodolfo Kramer MD 05/26/2021 09:23:18
--- NOTE | 2021-05-25 20:09 | XR_ITS ---
PROCEDURE INFORMATION: Exam: XR Chest Exam date and time: 05/25/2021 8:09 PM Age: 40 years old Clinical indication: Sternal or substernal pain; Additional info: Chest pain TECHNIQUE: Imaging protocol: XR of the chest. Views: 2 views. COMPARISON: No relevant prior studies available. FINDINGS: Lungs: Unremarkable. No consolidation. Pleural spaces: Unremarkable. No pleural effusion. No pneumothorax. Heart/Mediastinum: Unremarkable. No cardiomegaly. Bones/joints: Unremarkable. IMPRESSION: No acute findings. PROCEDURE INFORMATION: Exam: XR Abdomen Exam date and time: 05/25/2021 8:09 PM Age: 40 years old Clinical indication: Sternal or substernal pain; Additional info: Chest pain TECHNIQUE: Imaging protocol: XR of the abdomen. Views: 2 Views. Upright and supine views. COMPARISON: No relevant prior studies available. FINDINGS: Tubes, catheters and devices: Safety clip visualized on lateral projection overlying the upper abdomen which may be external to the patient. Clinical correlation recommended. Gastrointestinal tract: Normal. No bowel dilation. Intraperitoneal space: Normal. No free air. Bones/joints: Unremarkable for age. IMPRESSION: Safety clip visualized on lateral projection overlying the upper abdomen which may be external to the patient. Clinical correlation recommended.
[2021-05-25 20:25] LABS: Alanine Aminotransferase 20 U/L (12-78); Albumin Level 4.6 g/dl (3.5-5.0); Alkaline Phosphatase 64 U/L (38-126); Aspartate Amino Transferase 29 U/L (14-36); Bilirubin,Direct 0.1 mg/dl (0.0-0.4); Bilirubin,Indirect 0.5 mg/dL (0.0-0.9); Bilirubin,Total 0.6 mg/dl (0.2-1.3); Bilirubin,Unconjugated 0.5 mg/dL (0.0-1.1); Blood Urea Nitrogen 14 mg/dl (7-17); Calcium 9.1 mg/dl (8.4-10.2); Carbon Dioxide 30 mmol/L (22.0-30.0); Chloride 101 mmol/L (98-107); Creatinine Clearance Estimated 91 mL/min (50-200); Estimated Glomerular Filt Rate 112 ml/min (>60); GFR (African American) 135 ML/MIN (>60); Glucose 110 mg/dl (74-100); Sodium 138 mmol/L (136-145); Total Protein,Serum 7.4 g/dl (6.3-8.2)
[2021-05-25 20:31] LABS: Basophils # 0.1 K/mm3 (0-0.2); Basophils % 1.3 % (0.1-2.0); Eosinophils # 0.2 K/mm3 (0.0-0.4); Eosinophils % 2.9 % (0.1-12.0); HCG Qualitative, Serum Negative (Negative); Hematocrit 40.7 % (37.0-47.0); Hemoglobin 13.5 g/dL (12.2-16.2); Lymphocytes # 2.3 K/mm3 (0.7-4.5); Lymphocytes % 36.2 % (10-50); Mean Corpuscular HGB Conc 33.1 g/dL (31.8-35.4); Mean Corpuscular Hemoglobin 30.3 pg (27.0-31.2); Mean Corpuscular Volume 91.6 fl (81-99); Mean Platelet Volume 8.4 fl (7.4-10.4); Monocytes # 0.3 K/mm3 (0.1-1.0); Monocytes % 4.9 % (1.7-9.3); Neutrophils # 3.5 K/mm3 (1.8-7.8); Neutrophils % 54.7 % (37.0-80.0); Platelet Count 294 K/mm3 (142-424); Red Blood Count 4.45 M/mm3 (4.20-5.40); Red Cell Distribution Width 12.6 % (11.5-17.5); White Blood Count 6.5 K/mm3 (4.8-10.8)
[2021-05-25 20:37] LABS: Troponin I < 0.01 ng/ml (0.00-0.034)
--- NOTE | 2021-05-25 20:37 | CT_ITS ---
PROCEDURE INFORMATION: Exam: CTA Chest With Contrast Exam date and time: 05/25/2021 8:37 PM Age: 40 years old Clinical indication: Sternal or substernal pain; Additional info: Cp TECHNIQUE: Imaging protocol: Computed tomographic angiography of the chest with contrast. 3D rendering (Not supervised by radiologist): MIP and/or 3D reconstructed images were created by the technologist. Radiation optimization: All CT scans at this facility use at least one of these dose optimization techniques: automated exposure control; mA and/or kV adjustment per patient size (includes targeted exams where dose is matched to clinical indication); or iterative reconstruction. Contrast material: ISOVUE 370; Contrast volume: 70 ml; Contrast route: INTRAVENOUS (IV); COMPARISON: CR XR CHEST 2V 05/25/2021 9:40 PM FINDINGS: Pulmonary arteries: Normal. No pulmonary emboli. Aorta: No aortic aneurysm. No aortic dissection. Lungs: No consolidation. No masses. Pleural spaces: No pneumothorax. No pleural effusion. Heart: No cardiomegaly. No pericardial effusion. Lymph nodes: No enlarged lymph nodes. Bones/joints: No acute fracture. Soft tissues: No significant swelling. IMPRESSION: No acute findings.
--- NOTE | 2021-05-25 20:40 | HMH.EDCP ---
ED Disposition Clinical Impression: Atypical chest pain Disposition: Home, Self-Care Condition on Discharge: Good Instructions: DI for Atypical Chest Pain Additional Instructions: see pcp for follow up Referrals: Bibi Ford [Primary Care Provider] - - Critical Care Critical Care Time: No Attestation: On 05/25/21, the high probability of a clinically significant, sudden or life threatening deterioration of the following system(s) required my full and direct attention, intervention and personal management. The time I documented below is in addition to time spent performing reported procedures but includes the following listed in this critical care notation. Medical Decision Making - Medical Records Medical records reviewed: Yes: I reviewed the patient's medical records. - [place]man Inquiry Pt receiving controlled substance: No Vital Signs: 05/25/21 20:01 05/25/21 20:21 05/25/21 20:30 Temperature 97.8 F Temperature Source Oral Pulse Rate 82 87 Pulse Rate [Left Radial] 84 Respiratory Rate 18 20 Blood Pressure 108/80 L 98/62 L Blood Pressure [Right Arm] 164/88 H Blood Pressure Mean [Right Arm] 113 Blood Pressure Source Automatic Cuff Automatic Cuff Blood Pressure Source [Right Arm] Automatic Cuff Blood Pressure Position Supine Supine Blood Pressure Position [Right Arm] Standing 02 Sat by Pulse Oximetry 99 98 98 Oxygen Delivery Method Room Air Room Air Room Air 05/25/21 21:34 05/25/21 22:02 Temperature Temperature Source Pulse Rate 80 78 Pulse Rate [Left Radial] Respiratory Rate Blood Pressure 96/63 L 103/67 L Blood Pressure [Right Arm] Blood Pressure Mean [Right Arm] Blood Pressure Source Automatic Cuff Blood Pressure Source [Right Arm] Blood Pressure Position Supine Blood Pressure Position [Right Arm] 02 Sat by Pulse Oximetry 97 97 Oxygen Delivery Method Room Air Room Air - Lab Data Lab results reviewed: Yes: I reviewed the patient's lab results. Lab Results 05/25/21 20:00: Sodium 138, Potassium 4.0, Chloride 101, Carbon Dioxide 30, Anion Gap 11.0, BUN 14, Creatinine 0.60, Estimated Creat Clear 91, Estimated GFR 112, Est GFR ( Amer) 135, Glucose 110 H, Calcium 9.1, Total Bilirubin 0.6, Direct Bilirubin 0.1, Conjugated Bilirubin 0.0, Indirect Bilirubin 0.5, Unconjugated Bilirubin 0.5, AST 29, ALT 20, Alkaline Phosphatase 64, Troponin I < 0.01, Total Protein 7.4, Albumin 4.6 05/25/21 20:00: Serum HCG, Qual Negative 05/25/21 20:00: WBC 6.5, RBC 4.45, Hgb 13.5, Hct 40.7, MCV 91.6, MCH 30.3, MCHC 33.1, RDW 12.6, Plt Count 294, MPV 8.4, Neut % (Auto) 54.7, Lymph % (Auto) 36.2, [place] % (Auto) 4.9, Eos % (Auto) 2.9, Baso % (Auto) 1.3, Neut # (Auto) 3.5, Lymph # (Auto) 2.3, [place] # (Auto) 0.3, Eos # (Auto) 0.2, Baso # (Auto) 0.1 05/25/21 20:00: Amylase 84, Lipase 77 05/25/21 20:00: TSH 3.28, Thyroxine (T4) 7.2 Result diagrams: 05/25/21 20:00 05/25/21 20:00 Orders (Tests/Meds): ED MEDICATIONS Generic Name Dose Route Start Last Admin Trade Name Freq PRN Reason Stop Dose Admin Sodium Chloride 1,000 mls @ 999 mls/hr 05/25/21 20:15 05/25/21 20:16 Sod Chlor 0.9% 1000ml Bag IV 05/25/21 21:15 999 mls/hr .Q1H1M MARCELLE Administration Nitroglycerin 0.4 mg 05/25/21 20:11 05/25/21 20:26 Nitroglycerin 0.4mg Sl Tablet SL 06/24/21 20:10 1 tablet Q5MINP PRN Administration Chest Pain Sodium Chloride 8 ml 05/25/21 20:11 Sodium Chloride 0.9% 10ml Vial IV 06/24/21 20:10 NEEDED PRN dilute pepcid Discontinued Medications Generic Name Dose Route Start Last Admin Trade Name Freq PRN Reason Stop Dose Admin Aspirin 324 mg 05/25/21 20:10 05/25/21 20:15 Aspirin 81mg Chewable Tablet PO 05/25/21 20:11 324 mg ONCE ONE Administration Famotidine 20 mg 05/25/21 20:11 05/25/21 20:15 Famotidine 20mg/2ml Vial IV 05/25/21 20:12 20 mg ONCE ONE Administration Iopamidol 10 ml 05/25/21 22:03 05/25/21 22:05 Iop
[2021-05-25 20:51] LABS: Amylase 84 U/L (30-110)
[2021-05-25 20:52] LABS: Lipase 77 U/L (23-300)
[2021-05-25 21:17] LABS: T4 (Thyroxine) 7.2 ug/dl (5.53-11.0)
[2021-05-25 21:31] LABS: Thyroid Stimulating Hormone 3.28 uIU/mL (0.465-4.68)
--- NOTE | 2021-05-25 21:48 | PC.NURSE ---
PT DENIES PAIN/SHORTNESS OF BREATH AND DIZZINESS. PT UPDATED WITH PLAN OF CARE. WILL CONTINUE TO MONITOR.
--- NOTE | 2021-05-25 23:03 | PC.NURSE ---
PT CONTINUES TO DENY CHEST PAIN AND SHORTNESS OF BREATH. SECOND TROP DRAWN. PT TOLERATED WELL.
[2021-05-25 23:29] LABS: Troponin I < 0.01 ng/ml (0.00-0.034)
== END 2021-05-25 23:47 | disposition home or self-care (01) ==
PROVIDERS: Emergency Provider Emergency Medicine; PCP Nurse Practitioner Family
DX: R07.89 Other chest pain (principal); R42 Dizziness and giddiness; R06.00 Dyspnea, unspecified; R10.13 Epigastric pain; D64.9 Anemia, unspecified; Z82.49 Family history of ischemic heart disease and other diseases of the circulatory system; Z80.9 Family history of malignant neoplasm, unspecified; Z83.42 Family history of familial hypercholesterolemia; Z83.49 Family history of other endocrine, nutritional and metabolic diseases
CPT/HCPCS: 71046; 71275; 80048; 80076; 82150; 83690; 84436; 84443; 84484; 84703; 85025; 93005; 96361; 96365; 96374; 99285; Q9967

== ENCOUNTER → 2021-11-27 15:58 | Outpatient (CLI) | payer SELFPAY ==
[2021-11-27 17:07] LABS: Basophils # 0.1 K/mm3 (0-0.2); Basophils % 0.8 % (0.1-2.0); Eosinophils # 0.6 K/mm3 (0.0-0.4); Eosinophils % 8.7 % (0.1-12.0); Hematocrit 33.1 % (37.0-47.0); Hemoglobin 11.3 g/dL (12.2-16.2); Lymphocytes # 1.7 K/mm3 (0.7-4.5); Lymphocytes % 26.8 % (10-50); Mean Corpuscular HGB Conc 34.3 g/dL (31.8-35.4); Mean Corpuscular Hemoglobin 32.1 pg (27.0-31.2); Mean Corpuscular Volume 93.8 fl (81-99); Mean Platelet Volume 8.4 fl (7.4-10.4); Monocytes # 0.3 K/mm3 (0.1-1.0); Monocytes % 3.9 % (1.7-9.3); Neutrophils # 3.9 K/mm3 (1.8-7.8); Neutrophils % 59.9 % (37.0-80.0); Platelet Count 254 K/mm3 (142-424); Red Blood Count 3.53 M/mm3 (4.20-5.40); Red Cell Distribution Width 13.7 % (11.5-17.5); White Blood Count 6.5 K/mm3 (4.8-10.8)
== END ==
PROVIDERS: PCP Nurse Practitioner Family; Visit Provider Obstetrics & Gynecology
DX: Z34.90 Encounter for supervision of normal pregnancy, unspecified, unspecified trimester (principal)
CPT/HCPCS: 36415; 85025; 86850

== ENCOUNTER 2022-01-29 13:47 | Outpatient (CLI) | payer SELFPAY ==
[2022-01-29 14:22] LABS: Basophils % 0.3 % (0.1-2.0); Eosinophils # 0.2 K/mm3 (0.0-0.4); Eosinophils % 2.5 % (0.1-12.0); Hematocrit 33.4 % (37.0-47.0); Lymphocytes # 1.6 K/mm3 (0.7-4.5); Lymphocytes % 24.8 % (10-50); Mean Corpuscular HGB Conc 32.9 g/dL (31.8-35.4); Mean Corpuscular Hemoglobin 31.1 pg (27.0-31.2); Mean Corpuscular Volume 94.4 fl (81-99); Mean Platelet Volume 8.4 fl (7.4-10.4); Monocytes # 0.3 K/mm3 (0.1-1.0); Monocytes % 4.5 % (1.7-9.3); Neutrophils # 4.4 K/mm3 (1.8-7.8); Neutrophils % 67.9 % (37.0-80.0); Platelet Count 247 K/mm3 (142-424); Red Blood Count 3.54 M/mm3 (4.20-5.40); Red Cell Distribution Width 13.3 % (11.5-17.5); White Blood Count 6.5 K/mm3 (4.8-10.8)
[2022-01-29 16:40] VITALS: BP 101/62; PULSE 81; RESP 18; TEMP 36.7; O2SAT 100
== END 2022-01-29 17:00 | disposition home or self-care (01) ==
LOC: LAB 13:48 → INF 16:24
PROVIDERS: PCP Nurse Practitioner Family; Visit Provider Obstetrics & Gynecology
DX: O26.899 Other specified pregnancy related conditions, unspecified trimester (principal); Z67.91 Unspecified blood type, Rh negative; Z3A.27 27 weeks gestation of pregnancy
CPT/HCPCS: 36415; 85025; 96372; J2790

== ENCOUNTER 2022-03-31 09:21 | Emergency (ER) | payer SELFPAY ==
[2022-03-31 09:45] VITALS: BP 85/59; PULSE 101; RESP 22; TEMP 36.8; O2SAT 98; BMI 30.7
--- NOTE | 2022-03-31 09:55 | PC.NURSE ---
Wallace THAO APRN SPOKE WITH Shanti BARRY RN REGARDING PATIENT 34 WEEKS, BACK PAIN, NAUSEA, AND LOW BP. U/A RUN IN [facility] AND WAS FOUND TO BE NEGATIVE. Wallace THAO APRN ADVISED THAT PATIENT SHOULD BE SENT TO OB DEPARTMENT FOR EVALUATION. FITNESS SUPERVISOR TO GET PATIENT.
--- NOTE | 2022-03-31 09:58 | EXP.UTC ---
Discharge Plan Disposition Patient Disposition: Still a Patient Condition: Fair Prescriptions Prescriptions: No Action PNV cmb#95-ferrous fumarate-FA 1 EACH tablet 1 each PO DAILY Referrals Follow up/Referrals: Bibi Ford [Primary Care Provider] - See instructions Clinical Impressions Clinical Impression: Back pain in Hypotension Qualifiers: Hypotension type: unspecified hypotension type Qualified Code(s): I95.9 - Hypotension, unspecified Discharge ED Provider: Mily Strauss [facility] General Stated complaint: Nausea, lowerback pain Time Seen by Provider: 03/31/22 09:58 History of Present Illness Provider Complaint: Patient is 34 weeks OB states this is her 12th with 10 living children States that she saw OB on and everything looked good States that yesterday she didnt have any appetitie and has been having pain all over her back, nausea and headache States that this morning she was still having nausea and back pain so she came in to get checked not sure if she may be in labor having something else going on Related Data Home Medications Medication Instructions Recorded Confirmed vit no.95-ferrous 1 each PO DAILY Supplement 04/01/19 03/28/22 fumarate 28 mg-folic acid 800 mcg tablet Allergies Allergy/AdvReac Type Severity Reaction Status Date / Time No Known Allergies Allergy Verified 03/28/22 16:00 [facility] Disclaimer: The information contained in this section may have been updated after the patient was seen, as this information can be updated by other users. Medical History 25 weeks gestation of Anemia Surgical History H/O dilation and curettage History of Family History Other Anemia Cancer Coronary artery disease Diabetes Hyperlipidemia Hypertension Stroke Thyroid disorder Social History Smoking Status: Never smoker alcohol intake: never substance use type: denies use and other current occupational status: unemployed Travel in the last 8 weeks: None household members: other housing: other caffeine: Yes ROS Obtained: Yes All systems reviewed & no additional complaints except as documented and Yes Systems reviewed as appropriate & no additional complaints except as documented Constitutional Constitutional: Reports system reviewed and no additional complaints, except as documented, Reports as per HPI, Denies fever(s) and Reports headache(s) ENT Ears, Nose, Mouth, and Throat: Reports system reviewed and no additional complaints, except as documented, Reports as per HPI and Reports headache(s) Cardiovascular Cardiovascular: Reports system reviewed and no additional complaints, except as documented and Reports as per HPI Respiratory Respiratory: Reports system reviewed and no additional complaints, except as documented and Reports as per HPI Gastrointestinal Gastrointestingal: Reports system reviewed and no additional complaints, except as documented and as per HPI; Denies abdominal pain Genitourinary Female Genitourinary: Reports system reviewed and no additional complaints, except as documented, Reports as per HPI, Denies dysuria, Denies pelvic pain, Denies urinary frequency, Denies urinary urgency and Reports other (denies spotting and denies leaking fluids) Musculoskeletal Musculoskeletal: Reports system reviewed and no additional complaints, except as documented, Reports as per HPI and Reports back pain Neurologic Neurologic: Reports headache(s) Physical Exam General General appearance: alert and in no apparent distress Respiratory Respiratory exam: Present normal lung sounds bilaterally; Absent respiratory distress or wheezes Cardiovascular Cardiovascular exam: Present
[2022-03-31 09:59] LABS: Apearance,Urine Clear (Clear); Blood, Urine Negative (Negative); Color,Urine Yellow (Yellow); Glucose,Urine (UA) Negative (Negative); Ketones,Urine Negative (Negative); Protein,Urine Negative (Negative); Specific Gravity, Urine 1.015 (1.005-1.030)
[2022-03-31 10:00] LABS: Bilirubin,Urine Negative (Negative); UTC Leukocyte Esterase,Urine Negative (Negative); UTC Nitrate,Urine Negative (Negative); Urobilinogen,Urine 0.2 EU/dl (0.2)
[2022-03-31 10:06] VITALS: BP 85/59; PULSE 101; RESP 20; TEMP 36.8; O2SAT 98
--- NOTE | 2022-03-31 10:08 | PC.NURSE ---
PATIENT LEFT [facility] WITH TECHNICAL SALES SPECIALIST AT THIS TIME.
== END 2022-03-31 10:08 | disposition still patient (30) ==
PROVIDERS: Emergency Provider Nurse Practitioner; PCP Nurse Practitioner Family
DX: O26.893 Other specified pregnancy related conditions, third trimester (principal); M54.50 Low back pain, unspecified; Z3A.34 34 weeks gestation of pregnancy
CPT/HCPCS: 81003; 99212; G0463

== ENCOUNTER 2022-03-31 10:03 | Outpatient (CLI) | payer SELFPAY ==
[2022-03-31 10:16] VITALS: BMI 30.8
[2022-03-31 10:38] LABS: Amphetamine/Metha Screen,Urine Negative ng/ml (<1000)
[2022-03-31 10:39] LABS: Barbiturates Screen,Urine Negative ng/ml (<200); Benzodiazepines Screen,Urine Negative ng/ml (<200)
[2022-03-31 10:41] LABS: Cannabinoid Screen,Urine Negative ng/ml (<50); Cocaine Screen,Urine Negative ng/ml (<300)
[2022-03-31 10:42] LABS: Methadone Screen,Urine Negative ng/ml (<300)
[2022-03-31 10:43] LABS: Opiate Screen,Urine Negative ng/ml (<300); Phencyclidine Screen,Urine Negative ng/ml (<25)
[2022-03-31 11:00] VITALS: BP 109/67; PULSE 99; RESP 18; TEMP 36.7; O2SAT 97; BMI 30.7
[2022-03-31 11:12] LABS: Basophils % 0.3 % (0.1-2.0); Eosinophils # 0.1 K/mm3 (0.0-0.4); Eosinophils % 1.8 % (0.1-12.0); Hematocrit 31.3 % (37.0-47.0); Hemoglobin 10.9 g/dL (12.2-16.2); Lymphocytes # 0.8 K/mm3 (0.7-4.5); Lymphocytes % 15.8 % (10-50); Mean Corpuscular HGB Conc 34.8 g/dL (31.8-35.4); Mean Corpuscular Hemoglobin 29.8 pg (27.0-31.2); Mean Corpuscular Volume 85.7 fl (81-99); Mean Platelet Volume 7.8 fl (7.4-10.4); Monocytes # 0.2 K/mm3 (0.1-1.0); Monocytes % 3.7 % (1.7-9.3); Neutrophils # 3.8 K/mm3 (1.8-7.8); Neutrophils % 78.3 % (37.0-80.0); Platelet Count 325 K/mm3 (142-424); Red Blood Count 3.65 M/mm3 (4.20-5.40); Red Cell Distribution Width 13.8 % (11.5-17.5); White Blood Count 4.8 K/mm3 (4.8-10.8)
[2022-03-31 11:14] LABS: Chloride 107 mmol/L (98-107); Potassium 3.6 mmoL/L (3.5-5.1); Sodium 134 mmol/L (136-145)
[2022-03-31 11:16] LABS: Alanine Aminotransferase 71 U/L (12-78); Alkaline Phosphatase 191 U/L (38-126); Aspartate Amino Transferase 51 U/L (14-36); Bilirubin,Total 0.9 mg/dl (0.2-1.3); Blood Urea Nitrogen 7 mg/dl (7-17); Creatinine Clearance Estimated 170 mL/min (50-200); Estimated Glomerular Filt Rate 137 ml/min (>60); GFR (African American) 166 ML/MIN (>60)
[2022-03-31 11:17] LABS: Albumin Level 3.5 g/dl (3.5-5.0); Albumin/Globulin Ratio 1.1 (1.1-1.8); Anion Gap 9.6 mEq/L (5-15); Calcium 8.4 mg/dl (8.4-10.2); Carbon Dioxide 21 mmol/L (22.0-30.0); Globulin 3.3 g/dL (1.3-3.2); Glucose 102 mg/dl (74-100); Lactic Acid 0.6 mmol/L (0.7-2.1); Total Protein,Serum 6.8 g/dl (6.3-8.2)
[2022-03-31 12:04] LABS: Influenza A, PCR Not Detected (NotDetected); Influenza B, PCR Not Detected (NotDetected)
[2022-03-31 12:30] LABS: Coronavirus 19, PCR Detected (NotDetected)
== END 2022-03-31 12:40 | disposition home or self-care (01) ==
LOC: OBOUT 10:05 → OB 10:05
PROVIDERS: PCP Nurse Practitioner Family; Visit Provider Nurse Practitioner Obstetrics & Gynecology
DX: O26.893 Other specified pregnancy related conditions, third trimester (principal); Z3A.34 34 weeks gestation of pregnancy; M54.50 Low back pain, unspecified; R11.2 Nausea with vomiting, unspecified
CPT/HCPCS: 59025; 80053; 80305; 83605; 85025; 87040; 96365; 96366; C9803; G0463; U0003; U0005

== ENCOUNTER → 2022-04-11 12:54 | Outpatient (CLI) | payer SELFPAY | PROVIDERS: PCP Obstetrics & Gynecology; Visit Provider Obstetrics & Gynecology | DX: Z34.90 Encounter for supervision of normal pregnancy, unspecified, unspecified trimester (principal) | CPT/HCPCS: 86403 ==

== ENCOUNTER 2022-04-18 04:43 | Inpatient (IN) | payer SELFPAY ==
[2022-04-18] VITALS (13 sets, daily range): BP systolic 97–129; BP diastolic 60–87; PULSE 71–95; RESP 17–24; TEMP 36.1–36.8; O2SAT 97–100; BMI 31.0
[2022-04-18 05:37] LABS: Microscopic, Urine URINE MICROSCOPIC (MICROSCOPIC)
[2022-04-18 05:41] LABS: Coronavirus 19, PCR Not Detected (NotDetected); Influenza A, PCR Not Detected (NotDetected); Influenza B, PCR Not Detected (NotDetected)
[2022-04-18 05:42] LABS: Appearance,Urine CLEAR (Clear); Bilirubin,Urine Negative (Negative); Blood, Urine Negative (Negative); Color,Urine YELLOW (Yellow); Glucose,Urine (UA) Negative (Negative); Ketones,Urine Negative (Negative); Leukocyte Esterase,Urine Negative (Negative); Nitrate,Urine Negative (Negative); PH,Urine 7.5 (5.0-8.5); Protein,Urine Negative (Negative); Urobilinogen,Urine 0.2 EU/dl (0.2)
[2022-04-18 05:47] LABS: Basophils # 0.1 K/mm3 (0-0.2); Basophils % 0.9 % (0.1-2.0); Eosinophils # 0.1 K/mm3 (0.0-0.4); Eosinophils % 2.1 % (0.1-12.0); Hematocrit 33.1 % (37.0-47.0); Hemoglobin 10.8 g/dL (12.2-16.2); Lymphocytes # 1.5 K/mm3 (0.7-4.5); Lymphocytes % 29.9 % (10-50); Mean Corpuscular HGB Conc 32.7 g/dL (31.8-35.4); Mean Corpuscular Volume 85.8 fl (81-99); Mean Platelet Volume 7.7 fl (7.4-10.4); Monocytes # 0.3 K/mm3 (0.1-1.0); Neutrophils # 3.1 K/mm3 (1.8-7.8); Platelet Count 270 K/mm3 (142-424); Red Blood Count 3.86 M/mm3 (4.20-5.40); Red Cell Distribution Width 14.4 % (11.5-17.5); White Blood Count 5.1 K/mm3 (4.8-10.8)
[2022-04-18 05:54] LABS: Barbiturates Screen,Urine Negative ng/ml (<200)
[2022-04-18 05:55] LABS: Benzodiazepines Screen,Urine Negative ng/ml (<200)
[2022-04-18 05:56] LABS: Amphetamine/Metha Screen,Urine Negative ng/ml (<1000)
[2022-04-18 05:57] LABS: Cannabinoid Screen,Urine Negative ng/ml (<50); Methadone Screen,Urine Negative ng/ml (<300)
[2022-04-18 05:58] LABS: Cocaine Screen,Urine Negative ng/ml (<300)
[2022-04-18 05:59] LABS: Opiate Screen,Urine Negative ng/ml (<300)
[2022-04-18 06:00] LABS: Phencyclidine Screen,Urine Negative ng/ml (<25)
--- NOTE | 2022-04-18 10:07 | EXP.HP ---
History of Present Illness *Admission Date: 04/18/22 *Reason for visit:: Induction of labor *History of present illness: 41 yo G12 P 10-0-1-10 admitted for induction of labor at 37 1/7 ? ? ? COLIN 05/08/22 by certain LMP; first visit was at 16 6/7 ? ? ? FH at first visit was c/w LMP dating, but she declined ultrasound evaluation for dating or anatomical survey because of moravian beliefs ? ? ? She also declined routine labs but agreed to CBC and T&S ? ? ? Known Rh negative maternal status from previous pregnancies Most recent was breech presentation at time of active labor and was delivered by primary CS Because of history of breech infant, she agreed to office ultrasound at recent visit; vertex presentation was confirmed but TITO was low at 7.8 She agreed to IOL in the context of oligohydramnios, advanced maternal age, grand-multiparity and risk of rapid labor at home with previous uterine incision She also has an extensive history of hemorrhage with previous home deliveries and previous miscarriage, which required transfusion to compensate for excessive blood loss ? ? ? OB Hx: ? ? ? Full term x 9 ? ? ? Full term LTCS x 1 (breech) ? ? ? SAB x 1 (+D&C for hemorrhage) ? ? ? G11 delivered by LTCS for breech presentation ? ? ? Infant diagnosed with Trisomy 21 after ? ? ? She declined genetic testing or ultrasound assessment with this ? ? She received Rhogam prophylaxis on 01/29/22 and had documented negative antibody screen at that time She declined 1 hr GTT ? ? ? She has been taking po ferrous sulfate for anemia [facility] Disclaimer: The information contained in this section may have been updated after the patient was seen, as this information can be updated by other users. Medical History 25 weeks gestation of Anemia Surgical History H/O dilation and curettage History of Family History Other Anemia Cancer Coronary artery disease Diabetes Hyperlipidemia Hypertension Stroke Thyroid disorder Social History (Updated 04/18/22 @ 06:44 by Marilee Medina RN) Smoking Status: Never smoker alcohol intake: never substance use type: denies use current occupational status: unemployed Travel in the last 8 weeks: None household members: other housing: other caffeine: Yes do you feel safe at home: Yes victim of physical abuse: No victim of emotional abuse: No victim of sexual abuse: No Review of Systems Review of Systems Review of systems:: pertinent systems reviewed and negative unless documented below *Genitourinary Genitourinary: Denies abnormal vaginal bleeding and Reports other (irregular contractions) *Neurologic Neurologic: Denies other visual disturbances Meds Home Medications and Allergies Home Medications Medication Instructions Recorded Confirmed Type vit no.95-ferrous 1 each PO DAILY Supplement 04/01/19 04/11/22 History fumarate 28 mg-folic acid 800 mcg tablet New Prescriptions to Start Prescriptions: Allergies Allergy/AdvReac Type Severity Reaction Status Date / Time No Known Allergies Allergy Verified 04/11/22 15:53 Exam Data for Last 24 hours Vital signs and Labs for Last 24 Hours: Temp Pulse Resp BP Pulse Ox 97.7 F 93 H 19 97/60 L 100 04/18/22 06:34 04/18/22 06:34 04/18/22 06:34 04/18/22 06:34 04/18/22 06:34 Laboratory Results - last 24 hr 04/18/22 04:50: Urine Color Yellow, Urine Appearance Clear, Urine pH 7.5, Ur Specific [place] 1.010, Urine Protein Negative, Urine Glucose (UA) Negative, Urine Ketones Negative, Urine Blood Negative, Urine Nitrate Negative, Urine Bilirubin Negative, Urine Urobilinogen 0.2, Ur Leukocyte Esterase Negative, Urine
--- NOTE | 2022-04-18 13:46 | EXP.LABOR.NO ---
Labor Note Subjective: Date: 04/18/22 Time: 13:46 Comment:: regular contractions, mild intensity still requesting to ambulate in labor tracing has remained reassuring Objective: NST:: Reactive Cervical Dilation:: 3-4 Effacement:: 70% Station: -1 Membranes: artificially ruptured Comment:: IUPC and FSE placed without difficulty or complication Fetus: monitoring type:: Internal Comment:: tracing reassuring Assessment: Labor progressing?: Yes All Active Problems (Updated 01/29/22 @ 17:06 by Paxton Denis RN) Oligohydramnios in oneal in third trimester (Acute) 37 weeks gestation of (Acute) Diseases of the circulatory system complicating , third trimester (Acute) Back pain in (Acute) (Acute) Grand multiparity (Acute) Nondenominational ancestry (Acute) Rh negative status during (Acute) Late care (Acute) History of hemorrhage (Acute) Anemia complicating (Acute) Advanced maternal age in (Acute) History of section (Acute) Trisomy 21, child of prior , currently (Acute) Patient desires vaginal after section () (Acute) Plan: Comment:: Continuous monitoring Pitocin held at 15u Anticipate ()
--- NOTE | 2022-04-18 17:15 | EXP.LABOR.NO ---
Labor Note Subjective: Date: 04/18/22 Time: 17:15 Comment:: regular contractions comfortable with stadol cervix unchanged: 4cm/70%/-1 large amount of active bleeding noted on exam and covering chuk Patient and were advised of concern for possible placental abruption, even though tracing remained reassuring Also counseled for risk of uterine dehiscence Recommend immediate delivery via c section and she agreed/consented Assessment: All Active Problems (Updated 01/29/22 @ 17:06 by Paxton Denis RN) Oligohydramnios in oneal in third trimester (Acute) 37 weeks gestation of (Acute) Diseases of the circulatory system complicating , third trimester (Acute) Back pain in (Acute) (Acute) Grand multiparity (Acute) [place] ancestry (Acute) Rh negative status during (Acute) Late care (Acute) History of hemorrhage (Acute) Anemia complicating (Acute) Advanced maternal age in (Acute) History of section (Acute) Trisomy 21, child of prior , currently (Acute) Patient desires vaginal after section () (Acute)
[2022-04-18 18:08] LABS: Cord Blood PH 7.59 (7.35-7.45)
--- NOTE | 2022-04-18 19:08 | P.PN_ITS ---
[facility] Disclaimer: The information contained in this section may have been updated after the patient was seen, as this information can be updated by other users. Medical History 25 weeks gestation of Anemia Surgical History H/O dilation and curettage History of Family History Other Anemia Cancer Coronary artery disease Diabetes Hyperlipidemia Hypertension Stroke Thyroid disorder Social History Smoking Status: Never smoker alcohol intake: never substance use type: denies use current occupational status: unemployed Travel in the last 8 weeks: None household members: other housing: other caffeine: Yes do you feel safe at home: Yes victim of physical abuse: No victim of emotional abuse: No victim of sexual abuse: No [facility] Anesthesia Checklist Patient Identification Patient Identification: Arm Band and Verbal (Name & ) Structural Data Admitted From: Home Planned Operative Procedure/s: Repeat C/S Consent for Planned Operative Procedure(s) Verified: Yes NPO Status Verified Time NPO: 00:00 Additional verifications Anesthesia Reactions: No Hx Blood Transfusions: No Blood Transfusion Reaction: No Airway Assessment C-Spine Mobility Assessed: Yes TMJ Mobility Assessed: Yes Dentition: Good Dentition Neurological Assessment Level of Consciousness: Awake Hx Seizures: No Numbness or tingling in extremities: No Anesthesia Plan Anesthesia Risk discussed: Yes Anesthesia Plan: Verified ASA Class: II (E) Anesthesia Type: Spinal
--- NOTE | 2022-04-18 19:08 | EXP.ANES.I ---
[facility] Anesthesia Record Part I Anesthesia Record I Intake, IV Amount: 1,000 Estimated blood loss (mL): 800 Urine output (mL): 100 Blood Pressure: 126/74 SaO2: 100 Pulse Rate: 77 Respiratory Rate: 19 Temperature: 97.4 F Patient is:: Awake Stable to PACU at:: 19:03
--- NOTE | 2022-04-18 19:25 | P.OP_ITS ---
Date of procedure: 04/18/22 Pre-op Diagnosis:: 1. 37 1/7 weeks 2. Previous CS, desires TOLAC 3. Placental abruption 4. Anemia Post-op Diagnosis:: Same Procedure performed:: Low Transverse C Section Surgeon:: Nakia Victoria MD FURNITURE ASSOCIATE:: Herminio Valeriozoie Anesthesia: spinal Estimated blood loss (mL): 800 Operative findings:: Living male in vertex presentation Apgars 9 & 9 Placental abruption involving approximately 20% surface area Operative note:: The patient was taken to the OR and spinal was administered without difficulty. She was prepped and draped in normal sterile fashion. A pfannenstiel skin incision was made with the scalpel and carried down to the fascia. The fascia was incised in the midline and sharply dissected off the rectus muscles. The muscles were in the midline and the peritoneum was entered sharply and extended bluntly. The Douglas-O self retaining retractor was placed in the abdomen and a bladder flap was created. The uterus was incised in the lower uterine segment in a transverse fashion and extended bluntly. The was delivered in controlled fashion, without complication or shoulder dystocia. The infant was vigorous at and handed to the awaiting visual education teacher and nursing staff for evaluation after cord clamped and cut. Cord blood was collected and a cord segment was preserved. The placenta was manually extracted and noted to have a visible abruption involving approximately 20% of surface area. The uterus was firm following delivery but she was given methergine 0.2 IM as prophylaxis because of a history of excessive hemorrhage with several prior deliveries. The uterus was repaired with 0-vicryl in a running/locked fashion, in 2 layers. The peritoneum was closed with 2-0 vicryl in a running fashion. The fascia was closed with #1 vicryl in a running fashion. The skin was closed with 2-0 Stratafix in a subcuticular fashion. The patient tolerated the procedure well. Sponge, lap, needle and instrument counts were correct x 2. She was taken to PACU awake and in stable condition. Condition: stable Disposition: PACU Specimens:: Placenta to pathology Complications:: None
--- NOTE | 2022-04-18 20:03 | SUR.PHASEI ---
1920-pt shivering. 1924- 25 mg demerol given ivp for shivering. 1929-pt no longer shivering. 250 cc clear,yellow urine emptied from f/c 1934-detailed report called to Daniel. Pt transported via bed to OB per Jojo MARIEE & Cordell. Pt left in care of Daniel MARIEE. @ .
--- NOTE | 2022-04-18 20:06 | PC.NURSE ---
TAP Block start 1847---stop 1857
[2022-04-19 06:19] LABS: Basophils % 0.3 % (0.1-2.0); Eosinophils # 0.1 K/mm3 (0.0-0.4); Eosinophils % 0.9 % (0.1-12.0); Hematocrit 30.4 % (37.0-47.0); Hemoglobin 10.4 g/dL (12.2-16.2); Lymphocytes # 0.8 K/mm3 (0.7-4.5); Lymphocytes % 10.1 % (10-50); Mean Corpuscular HGB Conc 34.1 g/dL (31.8-35.4); Mean Corpuscular Hemoglobin 29.1 pg (27.0-31.2); Mean Corpuscular Volume 85.2 fl (81-99); Mean Platelet Volume 8.5 fl (7.4-10.4); Monocytes # 0.3 K/mm3 (0.1-1.0); Monocytes % 3.6 % (1.7-9.3); Neutrophils # 6.3 K/mm3 (1.8-7.8); Neutrophils % 85.1 % (37.0-80.0); Platelet Count 207 K/mm3 (142-424); Red Blood Count 3.57 M/mm3 (4.20-5.40); Red Cell Distribution Width 14.5 % (11.5-17.5); White Blood Count 7.4 K/mm3 (4.8-10.8)
[2022-04-19 06:22] LABS: MANUAL DIFFERENTIAL MANUAL DIFFERENTIAL (MANUAL DIFF)
[2022-04-19 07:35] LABS: Eosinophils % 1 % (0-3); Lymphocytes % 12 % (10-50); Monocytes % 4 % (2-9); Neutrophils % 83 % (42-76); Platelet Estimate Normal; RBC Morphology Normal; Total Cells Counted 100
[2022-04-19 08:42] VITALS: BP 94/54; PULSE 81; RESP 16; TEMP 36.4
--- NOTE | 2022-04-19 11:07 | P.PNANES_ITS ---
[facility] Anesthesia Record Part II Anesthesia Record Part II Discharge Time: 19:33 Destination: Obstetric PACU nurse assessment reviewed?: Yes Patient Condition:: Good Anesthesia Complications:: None Swallowing reflex intact?: Yes Cyanosis?: No Blood Pressure: 118/78 Pulse Rate: 74 Temperature: 97.6 F Mental Status: Alert & Oriented Pain level:: 0 Nausea and/or vomitting:: None Intake, IV Amount: 0
[2022-04-19 11:08] VITALS: BP 118/78; PULSE 74; TEMP 36.4
[2022-04-19 16:05] VITALS: BP 99/54; PULSE 86; RESP 16; TEMP 36.6; O2SAT 98
--- NOTE | 2022-04-19 16:42 | EXP.DC.SUM ---
General Admission date:: 04/18/22 Discharge date: 04/19/22 HPI HPI HPI: 41 yo G12 P 10-0-1-10 admitted for induction of labor at 37 03/30 ? ? ? COLIN 05/08/22 by certain LMP; first visit was at 16 6/7 ? ? ? FH at first visit was c/w LMP dating, but she declined ultrasound evaluation for dating or anatomical survey because of shinto beliefs ? ? ? She also declined routine labs but agreed to CBC and T&S ? ? ? Known Rh negative maternal status from previous pregnancies Most recent was breech presentation at time of active labor and was delivered by primary CS Because of history of breech infant, she agreed to office ultrasound at recent visit; vertex presentation was confirmed but TITO was low at 7.8 She agreed to IOL in the context of oligohydramnios, advanced maternal age, grand-multiparity and risk of rapid labor at home with previous uterine incision She also has an extensive history of hemorrhage with previous home deliveries and previous miscarriage, which required transfusion to compensate for excessive blood loss ? ? ? OB Hx: ? ? ? Full term x 9 ? ? ? Full term LTCS x 1 (breech) ? ? ? SAB x 1 (+D&C for hemorrhage) ? ? ? G11 delivered by LTCS for breech presentation ? ? ? Infant diagnosed with Trisomy 21 after ? ? ? She declined genetic testing or ultrasound assessment with this ? ? She received Rhogam prophylaxis on 01/29/22 and had documented negative antibody screen at that time She declined 1 hr GTT ? ? ? She has been taking po ferrous sulfate for anemia Hospital Course Hospital Course Hospital Course: Postop course uncomplicated She and request discharge home on POD #1 She is ambulating and voiding without difficulty She is tolerating a regular diet Lochia is appropriate and pain control sufficient Hgb is 10.4 on POD #1 (10.8 at admission) Exam Data for Last 24 hours Vital signs and Labs for Last 24 Hours: Temp Pulse Resp BP Pulse Ox 97.6 F 74 16 118/78 98 04/19/22 11:08 04/19/22 11:08 04/19/22 08:42 04/19/22 11:08 04/18/22 20:14 Laboratory Results - last 24 hr 04/18/22 17:53: Cord ABG pH 7.59 H* 04/19/22 05:57: WBC 7.4 D, RBC 3.57 L, Hgb 10.4 L, Hct 30.4 L, MCV 85.2, MCH 29.1, MCHC 34.1, RDW 14.5, Plt Count 207, MPV 8.5, Neut % (Auto) 85.1 H, Lymph % (Auto) 10.1, [place] % (Auto) 3.6, Eos % (Auto) 0.9, Baso % (Auto) 0.3, Neut # (Auto) 6.3, Lymph # (Auto) 0.8, [place] # (Auto) 0.3, Eos # (Auto) 0.1, Baso # (Auto) 0.0, Total Counted 100, Neutrophils % (Manual) 83 H, Lymphocytes % (Manual) 12, Monocytes % (Manual) 4, Eosinophils % (Manual) 1, Platelet Estimate Normal, RBC Morphology Normal 04/19/22 05:57: Screen Negative, Baby's Rh Status Positive, Rhogam Infusion Rhogam release I & O for Last 24 hours: Intake & Output 04/17/22 04/18/22 04/19/22 04/20/22 11:59 11:59 11:59 11:59 Intake Total 1000 / 1000 Output Total 1200 / 1200 Balance -200 / -200 Weight 159 lb Constitutional Constitutional: no acute distress *Routine HEENT Exam Head: Present normocephalic Eye: Absent conjunctival icterus or scleral injection ENT: Present mucous membranes moist *Routine Neck Exam Neck: Present supple *Routine Respiratory Exam Respiratory: Present CTA bilaterally *Routine Cardiovascular Exam Cardiovascular: Present RRR *Routine Abdominal Exam Abdominal: Present soft; Absent tenderness or distended *Routine Rectal Exam Patient deferred: visual exam and digital exam *Routine Exam Patient deferred: external exam Comments: Fundus firm below umbilicus *Routine Extremities Exam Extremities: Present edema *Routine Skin Exam Skin: Present intact and dry Comments: Incision intact without erythema or purulent drainage *Routine Neurological Exam Neurological: Present alert and oriented X3 Routine Psychiatric Exam Psychiatric: Present normal affect; Absent depressed Results Data Completed
== END 2022-04-19 20:12 | disposition home or self-care (01) | DRG 786 ==
PROVIDERS: Admitting Provider Obstetrics & Gynecology; PCP Nurse Practitioner Family; Visit Provider Obstetrics & Gynecology
PROC: 10D00Z1 Extraction of Products of Conception, Low, Open Approach (ICD-10-PCS; CPT 59514; principal; 2022-04-18 17:15)
DX: O41.03X0 Oligohydramnios, third trimester, not applicable or unspecified (principal); O45.93 Premature separation of placenta, unspecified, third trimester; Z3A.37 37 weeks gestation of pregnancy; Z37.0 Single live birth; O34.211 Maternal care for low transverse scar from previous cesarean delivery; N85.8 Other specified noninflammatory disorders of uterus; O99.019 Anemia complicating pregnancy, unspecified trimester; D64.9 Anemia, unspecified
CPT/HCPCS: 59620; 36415; 59025; 80305; 81001; 82800; 85007; 85025; 85461; 86850; 87086; 94761; C1758; C9290; C9803; G0283; J0595; J2790; U0003; U0005

== ENCOUNTER 2024-02-28 09:37 | Emergency (ER) | payer SELFPAY ==
--- NOTE | 2024-02-28 09:41 | XR_ITS ---
PROCEDURE INFORMATION: Exam: XR Right Hand Exam date and time: 02/28/2024 11:03 AM Age: 43 years old Clinical indication: Injury or trauma; Fall; Blunt trauma (contusions or hematomas); Hand; Right; Additional info: Fell off of horse TECHNIQUE: Imaging protocol: Radiologic exam of the right hand. Views: 3 or more views. COMPARISON: No relevant prior studies available. FINDINGS: Bones/joints: There is an acute, intra-articular, mildly displaced fracture along the base of the 5th metacarpal. Soft tissues: Normal. IMPRESSION: There is an acute, intra-articular, mildly displaced fracture along the base of the 5th metacarpal.
[2024-02-28 10:00] VITALS: BP 131/80; PULSE 90; RESP 18; TEMP 36.9; O2SAT 100; BMI 25.6
[2024-02-28 12:17] VITALS: BP 131/80; PULSE 90; RESP 18; TEMP 36.9; O2SAT 100
--- NOTE | 2024-02-28 12:19 | EXP.UTC ---
Discharge Plan Disposition Patient Disposition: Home, Self-Care Condition: Good Prescriptions Prescriptions: No Action No Known Home Medications Referrals Follow up/Referrals: Bibi Ford [Primary Care Provider] - See instructions Activity Restrictions/Add. Instructions Additional Instructions/Restrictions: Call Dr. Lamas for a follow up for cast placement at [phone]. Keep splint dry and in place. Clinical Impressions Clinical Impression: Closed fracture of base of fifth metacarpal bone of right hand Qualifiers: Encounter type: initial encounter Fracture alignment: displaced Qualified Code(s): S62.316A - Displaced fracture of base of fifth metacarpal bone, right hand, initial encounter for closed fracture Instructions Patient Instructions: DI for a Hand Fracture Print Language Print Language: [place] Discharge ED Provider: Albina Larry [facility] General Stated complaint: AO right hand pain Mode of Arrival: Ambulatory Source of Information: Patient Limitations: No Limitations Time Seen by Provider: 02/28/24 10:29 Description of Symptoms (Recalled from Triage Doc. by RN): PATIENT C/O INJURY TO RIGHT HAND AFTER JUMPING OFF OF A HORSE LAST NIGHT HEENT Symptoms (Recalled from RN notes): No Resp Symptoms (Recalled from RN notes): No Skin Symptoms (Recalled from RN notes): No MS Symptoms (Recalled from RN notes): Yes Functional Status (Recalled from RN notes): WNL History of Present Illness Provider Complaint: Pt reports that their horse got skittish and threw her and then the buggy was out of control so she jumped and somehow hit her right hand. She complains of pain and swelling Related Data Home Medications ?Medication ?Instructions ?Recorded ?Confirmed No Known Home Medications 02/28/24 02/28/24 Allergies Allergy/AdvReac Type Severity Reaction Status Date / Time No Known Allergies Allergy Verified 04/11/22 15:53 Worker's Comp Is this a Worker's Comp case?: No [facility] Disclaimer: The information contained in this section may have been updated after the patient was seen, as this information can be updated by other users. 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 , currently Surgical History (Updated 04/23/22 @ 00:00 by Jacob Benjamin) H/O dilation and curettage History of Family History Other Anemia Cancer Coronary artery disease Diabetes Hyperlipidemia Hypertension Stroke Thyroid disorder Social History Smoking Status: Never smoker alcohol intake: never substance use type: denies use current occupational status: unemployed Travel in the last 8 weeks: None household members: other housing: other caffeine: Yes do you feel safe at home: Yes victim of physical abuse: No victim of emotional abuse: No victim of sexual abuse: No ROS Obtained: Yes All systems reviewed & no additional complaints except as documented Constitutional Constitutional: Reports system reviewed and no additional complaints, except as documented Eyes Eyes: Reports system reviewed and no additional complaints, except as documented ENT Ears, Nose, Mouth, and Throat: Reports system reviewed and no additional complaints, except as documented Cardiovascular Cardiovascular: Reports system reviewed and no additional complaints, except as documented Respiratory Respiratory: Reports system reviewed and no additional complaints, except as documented Gastrointestinal Gastrointestingal: Reports system reviewed and no additional complaints, except as documented Genitourinary Female Genitourinary: Reports system reviewed and no additional complaints, except as documented Musculoskeletal Musculoskeletal: Reports system reviewed and no additional complaints, except as documented, Reports as per HPI and Reports small joint pain in the hands Integumentary/Breasts Skin/Breast: Reports system reviewed and no additional complaints, except as documented Neurologic Neurologic: Reports system reviewed and no additional complaints, except as documented Endocrine Endocrine: Reports system reviewed and no additional complaints, except as documented Hematologic/Lymphatic Henatologic/Lymphatic: Reports system reviewed and no additional complaints, except as documented Allergic/Immunologic Allergic/Immunologic: Reports system reviewed and no additional complaints, except as documented Physical Exam General General appearance: alert and in no apparent distress Head Head exam: atraumatic and normocephalic Eye Eye exam: Present normal appearance ENT ENT exam: Present normal exam and normal oropharynx Neck Neck exam: Present normal inspection Chest Chest inspection: Present normal inspection and symmetric chest wall rise Respiratory Respiratory exam: Present normal lung sounds bilaterally Cardiovascular Cardiovascular exam: Present regular rate and normal rhythm Abdominal Exam Abdominal exam: Present soft Extremities Exam Extremities exam: Present tenderness and normal capillary refill Expanded Upper Extremity Exam Right: Shoulder exam: Present normal inspection Arm exam: Present normal inspection Elbow exam: Present normal inspection Forearm/Wrist exam: Present normal inspection Hand exam: Present tenderness, swelling and ecchymosis Hand L/R back image: 1. swelling and tenderness Neuromotor exam: Normal wrist extension and thumb opposition Neurosensory exam: Normal radial nerve and ulnar nerve Vascular exam: Normal capillary refill Back Exam Back exam: Present normal inspection Neurological Exam Neurological exam: Present alert and oriented X3 Psychiatric Psychiatric exam: Present normal affect and normal mood Skin Skin exam: Present warm, dry and intact Lymphatic Lymphatic Findings: no adenopathy Medical Decision Making Medical Records Screening: Per USPSTF and CDC recommendations, given the prevalence of disease in our region, it is our hospital?s policy to screen for HIV and viral Hepatitis for all patients aged 18 and over and those with ongoing risk factors. Osman Inquiry Pt receiving controlled substance: No Osman was queried for this patient: No Vital Signs: 02/28/24 10:00 02/28/24 12:17 Temperature 98.4 F 98.4 F Temperature Source Oral Pulse Rate 90 Pulse Rate [Left Brachial] 90 Respiratory Rate 18 18 Blood Pressure 131/80 Blood Pressure [Left Arm] 131/80 Blood Pressure Mean [Left Arm] 97 Blood Pressure Source [Left Arm] Automatic Cuff Blood Pressure Position [Left Arm] Sitting 02 Sat by Pulse Oximetry 100 Oxygen Delivery Method Room Air Orders (Tests/Meds): ORDERS Category Date Time Status XR hand RT min 3V Stat Exams 02/28/24 09:41 Completed Radiology Data #1: Image(s): Hand Image Reviewed: Yes I reviewed the patient's radiology results and Yes I have reviewed radiologist's interpretation Preliminary Findings: Abnormal FINDINGS: Bones/joints: There is an acute, intra-articular, mildly displaced fracture along the base of the 5th metacarpal. Soft tissues: Normal. IMPRESSION: There is an acute, intra-articular, mildly displaced fracture along the base of the 5th metacarpal. Medical Decision Narrative: Called Dr. Lamas with pt x-ray results. He advised ulnar gutter splint and follow up with him on Friday. Procedures Orthopedic Splinting/Casting Injury #1: Side: right Upper Extremity Injury Location: hand Upper Extremity Immobilizer: ulnar gutter Post Cast/Splinting Neuro Status: intact Post Cast/Splinting Vasc Status: intact
== END 2024-02-28 12:29 | disposition home or self-care (01) ==
PROVIDERS: Emergency Provider Nurse Practitioner Family; PCP Nurse Practitioner Family
DX: S62.316A Displaced fracture of base of fifth metacarpal bone, right hand, initial encounter for closed fracture (principal); M79.641 Pain in right hand; V80.010A Animal-rider injured by fall from or being thrown from horse in noncollision accident, initial encounter; Y93.89 Activity, other specified; Y92.9 Unspecified place or not applicable
CPT/HCPCS: 73130; 99212; G0381

== ENCOUNTER 2024-12-15 10:57 | Outpatient (CLI) | payer SELFPAY | END 2024-12-15 23:59 | LOC: LAB.DROPOF 12-17 10:58 | PROVIDERS: PCP Nurse Practitioner Family; Visit Provider Obstetrics & Gynecology | DX: Z34.90 Encounter for supervision of normal pregnancy, unspecified, unspecified trimester (principal); Z3A.00 Weeks of gestation of pregnancy not specified | CPT/HCPCS: 87086 ==

== ENCOUNTER 2024-12-27 10:39 | Outpatient (CLI) | payer SELFPAY ==
[2024-12-27 12:45] VITALS: BP 100/67; PULSE 72; RESP 18; O2SAT 100
[2024-12-27] MEDS: RHO(D) IMMUNE GLOBULIN 1,500 UNIT (300MCG) SYRINGE 300 MCG IM (12:47)
== END 2024-12-27 23:59 | disposition home or self-care (01) ==
LOC: INF 10:39
PROVIDERS: PCP Nurse Practitioner Family; Visit Provider Obstetrics & Gynecology
DX: O26.899 Other specified pregnancy related conditions, unspecified trimester (principal); Z67.91 Unspecified blood type, Rh negative; Z3A.00 Weeks of gestation of pregnancy not specified
CPT/HCPCS: 36415; 96372; J2790

== ENCOUNTER 2025-03-02 11:41 | Outpatient (CLI) | payer SELFPAY ==
[2025-03-02 08:42] VITALS: BMI 27.3
--- NOTE | 2025-03-02 12:08 | ECG_ITS ---
APPROVED REPORT Exam: Resting ECG HR:79 bpm ECG Measurements Heart Rate 79 AXES PA 116 P 68 QRSd 82 QRS 75 QT 357 T 56 QTc 391 Conclusion SINUS RHYTHM WITH SHORT PA INTERVAL BORDERLINE ECG UNCONFIRMED REPORT Electronically signed by : Rodolfo Kramer MD 03/04/2025 08:07:03
[2025-03-02 12:12] LABS: Hematocrit 32.3 % (37.0-47.0); Hemoglobin 11.0 g/dL (12.2-16.2); Immature Granulocytes % 0.3 %; Mean Corpuscular HGB Conc 34.1 g/dL (31.8-35.4); Mean Corpuscular Hemoglobin 30.6 pg (27.0-31.2); Mean Corpuscular Volume 89.7 fl (81-99); Nucleated Red Blood Cells % 0 %; Platelet Count 190 K/mm3 (142-424); Red Blood Count 3.60 M/mm3 (4.20-5.40); Red Cell Distribution Width-SD 41.6 fL; White Blood Count 5.8 K/mm3 (4.8-10.8)
[2025-03-02 12:31] LABS: Alanine Aminotransferase 36 U/L (12-78); Albumin Level 3.8 g/dl (3.5-5.0); Albumin/Globulin Ratio 1.3 (1.1-1.8); Alkaline Phosphatase 135 U/L (38-126); Anion Gap 13.8 mEq/L (5-15); Aspartate Amino Transferase 41 U/L (14-36); Bilirubin,Total 0.6 mg/dl (0.2-1.3); Blood Urea Nitrogen 12 mg/dl (7-17); Calcium 9.1 mg/dl (8.4-10.2); Carbon Dioxide 21 mmol/L (22.0-30.0); Chloride 103 mmol/L (98-107); Creatinine Clearance Estimated 115 mL/min (50-200); Creatinine,Serum 0.70 mg/dl (0.52-1.04); Estimated Glomerular Filt Rate 92 ml/min (>60); GFR (African American) 111 ML/MIN (>60); Globulin 2.9 g/dL (1.3-3.2); Glucose 114 mg/dl (74-100); Potassium 3.8 mmoL/L (3.5-5.1); Sodium 134 mmol/L (136-145); Total Protein,Serum 6.7 g/dl (6.3-8.2)
== END 2025-03-02 23:59 | disposition home or self-care (01) ==
LOC: PREOP 11:42
PROVIDERS: Visit Provider Obstetrics & Gynecology
DX: Z01.810 Encounter for preprocedural cardiovascular examination (principal); Z01.812 Encounter for preprocedural laboratory examination; R94.31 Abnormal electrocardiogram [ECG] [EKG]
CPT/HCPCS: 80053; 85025; 93005

== ENCOUNTER 2025-03-09 05:19 | Inpatient (IN) | payer SELFPAY ==
--- OUTSIDE RECORDS SUMMARY | 2025-03-09 05:23 | XMS_ITS | Data Portability ---
Author Organization [facility] Address [address] [address] Assessment No assessment recorded. Plan of Treatment Reminders Order Date Submit Date Provider Last Modified By Organization Details Last Modified Time Details Appointments None recorded. Lab None recorded. Referral None recorded. Procedures None recorded. Surgeries None recorded. Imaging None recorded. Medication Orders fluconazole 200 mg tablet 2022 023 [facility], [address] [place] [address], [id number], 3 17:59:38 Patient TargetsNo targets recorded. Patient InstructionsNo instructions recorded. Reason for Referral None Reported. Results Created Date Observation Date Name Description Value Unit Range Abnormal Flag Note LastModifiedBy Organization Detail LastModifiedTime 02/28/20 24 02/28/2024 XR, hand No observ ation record ed. [email or web address] [place] [address], [place], [address], 02/29/2024 18:01:22 Result Notes None recorded. Problems Name Problem SNOMED Code Status Onset Date Resolution Date Notes Provider Name and Address Organization Details Recorded Time Periapica l abscess without sinus tract Completed 201905/28/2021 Not Available [facility] 2 20:57:27 Asthenia [id number] Completed 201905/28/2021 Problem Code: R53.1; Problem Code Type: ICD-10; Not Available [facility] 2 20:57:27 detection examinati on Active 2019 Problem Code: Z32.01; Problem Code Type: ICD-10; Not Available [facility] 2 20:57:27 Antepartu m hemorrhag e [id number] Completed 201909/10/2019 Problem Code: 641.93; Problem Code Type: ICD-9; Not Available [facility] 2 20:57:28 Tachycard ia 1112399 Active 2020 Not Available [facility] 2 20:57:27 Precordia l pain 72860377 Active 2021 Problem Code: R07.2; Problem Code Type: ICD-10; Not Available [facility] 2 20:57:27 Acute vaginitis 86111882 Active 2021 Problem Code: N76.0; Problem Code Type: ICD-10; Not Available [facility] 20:57:27 Mild hyperemes is gravidaru m 05328932 Active 2021 Problem Code: O21.0; Problem Code Type: ICD-10; Not Available [facility] 2 20:57:27 Dysuria 13443074 Active 2021 Problem Code: R30.0; Problem Code Type: ICD-10; Not Available [facility] 20:57:27 Problem Notes None recorded. Procedures Surgical History Date Name Laterality Status Provider Name and Address Organization Details Recorded Time 0 dilation and curettage completed Not Available [facility] 11/27/2021 22:56:20 Imaging Results None recorded. Procedure Notes None recorded. Medical Equipment None Reported. Medications Name Sig Start Date Stop Date Status Note LastModified by Organization Details LastModified Time amoxicillin 500 mg capsule take 1 capsule (500 mg) by oral route 3 times per day 03/21 completed Not Available Not Available Not Available azithromycin 250 mg tablet take 1 tablet (250 mg) by oral route once daily for 5 days 05/28 completed Not Available Not Available Not Available fluconazole 150 mg tablet Take 1 tablet every day by oral route for 1 day, for yeast. 2023 active Not Available Not Available Not Avai lable cephalexin 250 mg capsule take 1 capsule (250 mg) by oral route every 6 hours for 7 days 02/28 completed Not Available Not Available Not Available fluconazole 200 mg tablet Take 1 tablet every day by oral route for 3 days. 2022 active Not Available Not Available Not Avai lable promethazine 12.5 mg tablet take 1 tablet (12.5 mg) by oral route every 6 hours as needed for N/V 02/28 completed Not Available Not Available Not Available prednisone 20 mg tablet take 1 tablet (20 mg) by oral route once daily for 5 days 05/28 completed Not Available Not Available Not Available clotrimazole 1 % vaginal cream Use nightly to vagina as needed for yeast 02/28 completed Not Available Not Available Not Available propranolol 10 mg tablet take 1 tablet (10 mg) by oral route every 12 hours 02/28 completed Not Available Not Available Not Available Vitals Date Recorded Body weight Body temperature Heart rate Oxygen saturation Systolic And Diastolic Provider Name and Address Organization Details Last Updated DateTime 3 08976.4 9 g 98.6 [degF] 79 /min 97 % 92/56 mm[Hg] [facility] 3 17:32:18 Social History Question Answer Notes LastModified by Organizat ion Details LastModified Time Tobacco Smoking Status Never Smoker SocialHis toryQuest ion: 'Tobacco/ Alcohol/S upplement s'; SocialHis toryRespo nse: 'Never Smoker'; Not Available [facility] 11/27/2021 22:59:18 Is Your Home Air Conditioned? No Information not available 02/28/2023 In The 14 Days Before Symptom Onset, Have You Had Close Contact With A Laboratory-confir med COVID-19 While That Case Was Ill? No Information not available 02/28/2023 In The 14 Days Before Symptom Onset, Have You Had Close Contact With A Person Who Is Under Investigation For COVID-19 While That Person Was Ill? No Information not available 02/28/2023 Have You Been To An Area Known To Be High Risk For COVID-19? No Information not available 02/28/2023 What Type Of Diet Are You Following? REGULAR Information not available 02/28/2023 What Was The Date Of Your Most Recent Tobacco Screening? 02/28/2023 Information not available 02/28/2023 Do You Use Your Seat Belt Or Car Seat Routinely? No Information not available 02/28/2023 Do You Have Smoke And Carbon Monoxide Detectors In Your Home? No Information not available 02/28/2023 Have You Recently Traveled Abroad? No Information not available 02/28/2023 Do You Have Any Dietary Restrictions? No Information not available 02/28/2023 Sex: Female Functional Status Question Answer Note LastModified by Organizat ion Details LastModified Time Do you use any illicit or recreational drugs? No Information not available 02/28/2023 Do you or have you ever used any other forms of tobacco or nicotine? No Information not available 02/28/2023 What is your level of alcohol consumption? None Information not available 02/28/2023 Are you currently employed? No Information not available 02/28/2023 Mental Status None recorded. Family History Nothing Reported Notes:*Procedure Description : Documented family medical history in mother*Relative: Mother *Procedure Description: Documented family medical history in father*Relative: Father *Procedure Description: Family medical history unremarkable*Relative: Unspecified Relation *Problem: Relative: ''; Medical History No medical history recorded. Gynecological HistoryNo gynecological history recorded. Obstetrics History GPAL:G 0 P 0 0 0 0 Past Encounters Encounter ID Performer Location Encounter Start Date Encounter Closed Date Diagnosis/Indication Diagnosis SNOMED-CT Code Diagnosis ICD10 Code Diagnosis IMO Codes Diagnosis Note [id number] Bibi Ford APRN [address] [address] 02/28/2023 17:15:55 02/28/2023 17:51:38 Intertrigo 21999087 L30.4 Use cornstarch and silicone scar sheets as directed. Keep clean and dry. Health Concerns Section Related Observation LastModified by Organization Detai ls LastModified Time None Recorded Concern Status LastModified by Organization Details LastModified Time None Recorded Advance Directives Directive None Recorded Payers Insurance Date Sequence Insurance Name Policy Number Policy Howell Covered Member ID Howell Member ID Guarantor Name 08/04/2024 SLIDING FEE SCHEDULE - DISCOUNT Nathalia Olivo 02/28/2023 1 *SELF PAY* Ed theo Olivo 08/04/2024 SLIDING FEE SCHEDULE - DISCOUNT Nathalia Olivo Notes Date Note Type Note Provider Name and Address Organization Details Recorded Time 02/28/2023 text/html Rash/Skin LesionReported by PatientHPIFor quality, patient reportsitchy,painful ,weeping,red,drainin g, andfoul smelling. For location, patient reportsabdomen(c/o waxing and waning red rash at c section scar that is itchy and burning with foul odor and clear scant drainage since c section in ). For severity, patient reportsmild. For duration, patient reportshas noted for >3 months. For onset/timing, patient reportsgradual onsetandrecurring. For context, patient reportsno new detergents or skin products,no one else with similar rash, andnot scratching. For alleviating factors, patient reportspowder. For associated symptoms, patient reportsno fever,no cold symptoms,no nausea,no vomiting,no diarrhea,no urinary symptoms,no chills,no fatigue, andno change in weight. For treatment history, patient reportsalternative/h erbal treatment oils with no improvement.ROS as noted in the HPI Bibi Ford APRN [address] [facility], [place], [address], [facility] 03/02/2023 19:09:10 OBGyn Episode No OBEpisode recorded.
[2025-03-09 05:30] VITALS: BMI 27.4
[2025-03-09 05:36] VITALS: BMI 27.4
[2025-03-09 06:07] LABS: Hematocrit 33.0 % (37.0-47.0); Hemoglobin 11.5 g/dL (12.2-16.2); Immature Granulocytes % 0.6 %; Mean Corpuscular HGB Conc 34.8 g/dL (31.8-35.4); Mean Corpuscular Hemoglobin 30.4 pg (27.0-31.2); Mean Corpuscular Volume 87.3 fl (81-99); Nucleated Red Blood Cells % 0 %; Platelet Count 189 K/mm3 (142-424); Red Blood Count 3.78 M/mm3 (4.20-5.40); Red Cell Distribution Width-SD 40.8 fL; White Blood Count 5.3 K/mm3 (4.8-10.8)
[2025-03-09] MEDS: CEFAZOLIN 2GM VIAL 2 GM (07:18)
[2025-03-09] MEDS: 0.9 % SODIUM CHLORIDE 100 ML 50 ML IV (07:18)
--- NOTE | 2025-03-09 07:22 | P.PNANES_ITS ---
[facility] Disclaimer: The information contained in this section may have been updated after the patient was seen, as this information can be updated by other users. 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 , currently Surgical History History of hand surgery H/O dilation and curettage History of Family History Other Anemia Cancer Coronary artery disease Diabetes Hyperlipidemia Hypertension Stroke Thyroid disorder Social History Smoking Status: Never smoker alcohol intake: never substance use type: denies use current occupational status: unemployed Travel in the last 8 weeks?: None household members: other housing: other caffeine: Yes do you feel safe at home: Yes victim of physical abuse: No victim of emotional abuse: No victim of sexual abuse: No Have you lived/traveled outside US in past 30 days?: No Contact w/someone who lives/traveled outside US past 30 days?: No Exposure to someone with infectious disease in past 14 days?: No Do you have a fever (greater than 100.4 F or 38 C)?: No Have you tested positive for COVID-19?: No Exposed to someone with COVID-19 in past 14 days?: No Do you have a sore throat?: No Do you have a cough?: No Do you have any weakness?: No Do you have any diarrhea?: No Are you experiencing any unusual bleeding?: No Do you have any muscle aches/pain?: No Do you have any abdominal pain?: No Are you experiencing loss of taste or smell?: No [facility] Anesthesia Checklist Patient Identification Patient Identification: Arm Band and Verbal (Name & ) Structural Data Admitted From: Home Planned Operative Procedure/s: c section Consent for Planned Operative Procedure(s) Verified: Yes Verified Documents: Surgical Consent and History and Physical NPO Status Verified Time NPO: 00:00 Additional verifications Patient : Yes Anesthesia Reactions: No Hx Blood Transfusions: No Blood Transfusion Reaction: No Airway Assessment Mallampati Score:: Class II C-Spine Mobility Assessed: Yes TMJ Mobility Assessed: Yes Dentition: Good Dentition Neurological Assessment Level of Consciousness: Awake, Alert and Appropriate Hx Seizures: No Numbness or tingling in extremities: No Anesthesia Plan Anesthesia Risk discussed: Yes Anesthesia Plan: Verified ASA Class: II Anesthesia Type: Spinal
--- NOTE | 2025-03-09 07:23 | P.HP_ITS ---
OB - H&P: HPI Antepartum History of Present Illness Chief complaint: Scheduled repeat History of present illness: Mrs Nathalia Olivo is a 44 yo [id number] who presents to [facility] for scheduled repeat . History x 2. History of hemorrhage with prior vaginal delivery and with miscarriage. complicated by AMA and grand multiparity. History of Present Criteria for establishing EDC:: based on LMP only care: limited care Obstetrical complications: none Medical complications: none Labs Blood type: O (-) negative Rubella: unknown RPR/VDRL: unknown GBS status: unknown HBsAG: unknown [facility] Disclaimer: The information contained in this section may have been updated after the patient was seen, as this information can be updated by other users. 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 , currently Surgical History History of hand surgery H/O dilation and curettage History of Family History Other Anemia Cancer Coronary artery disease Diabetes Hyperlipidemia Hypertension Stroke Thyroid disorder Social History Smoking Status: Never smoker alcohol intake: never substance use type: denies use current occupational status: unemployed Travel in the last 8 weeks?: None household members: other housing: other caffeine: Yes do you feel safe at home: Yes victim of physical abuse: No victim of emotional abuse: No victim of sexual abuse: No Have you lived/traveled outside US in past 30 days?: No Contact w/someone who lives/traveled outside US past 30 days?: No Exposure to someone with infectious disease in past 14 days?: No Do you have a fever (greater than 100.4 F or 38 C)?: No Have you tested positive for COVID-19?: No Exposed to someone with COVID-19 in past 14 days?: No Do you have a sore throat?: No Do you have a cough?: No Do you have any weakness?: No Do you have any diarrhea?: No Are you experiencing any unusual bleeding?: No Do you have any muscle aches/pain?: No Do you have any abdominal pain?: No Are you experiencing loss of taste or smell?: No Other Medical History Have you received the Flu Vaccine for this season: No Have you received the Pneumonia Vaccine: No Review of Systems Review of Systems Review of systems:: pertinent systems reviewed and negative unless documented below Meds Home Medications and Allergies Home Medications ?Medication ?Instructions ?Recorded ?Confirmed ?Type No Known Home Medications 02/28/2402/21 History New Prescriptions to Start Prescriptions: Allergies Allergy/AdvReac Type Severity Reaction Status Date / Time No Known Allergies Allergy Verified 03/02/25 11:19 OB - H&P: Exam Constitutional no acute distress and cooperative Routine HEENT Exam Head: Present normocephalic and atraumatic Eye: Absent conjunctivae pink ENT: Present mucous membranes moist Routine Neck Exam Present full ROM Routine Respiratory Exam Present CTA bilaterally and normal respiratory effort Routine Cardiovascular Exam Present RRR Routine Abdominal Exam Present soft (Gravid); Absent tenderness Routine Neurological Exam Present alert, moving all extremities and normal speech Routine Psychiatric Exam Present normal affect and cooperative OB - Results Labs Labs: Short CBC 03/09/25 Range/Units 05:49 WBC 5.3 (4.8-10.8) K/mm3 Hgb 11.5 L (12.2-16.2) g/dL Hct 33.0 L (37.0-47.0) % Plt Count 189 (142-424) K/mm3 OB - A/P Antepartum (1) AMA (advanced maternal age) multigravida 35+: Status: Acute (2) Grand multiparity: Status: Acute (3) [facility] ancestry: Status: Acute (4) History of : Problem details: x 2 Status: Acute (5) History of hemorrhage: Status: Acute Additional Plan Planning to breastfeed?: Yes Additional Information:: Admit to [facility] for scheduled repeat Reviewed risks, benefits, alternatives and expectations of surgery. All questions addressed and answered. She voiced understanding of risks and possible complications. Consent signed Proceed with scheduled repeat
[2025-03-09 09:00] VITALS: BP 118/74; PULSE 77; RESP 18; TEMP 36.7; O2SAT 100
[2025-03-09 09:10] VITALS: BP 113/82; PULSE 76; RESP 18; TEMP 36.6; O2SAT 97
--- NOTE | 2025-03-09 09:13 | P.PNANES_ITS ---
[facility] Anesthesia Record Part I Anesthesia Record I Intake, IV Amount: 1,000 Hydration: Adequate Estimated blood loss (mL): 600 Urine output (mL): 200 Blood Products used (#): none Blood Pressure: 142/106 SaO2: 96 Pulse Rate: 86 Airway Patency: Patent Respiratory Rate: 18 Temperature: 97.5 F Patient is:: Awake and Stable Stable to PACU at:: 09:10
[2025-03-09 09:15] VITALS: BP 142/106; PULSE 86; RESP 18; TEMP 36.4; O2SAT 96
[2025-03-09 09:20] VITALS: BP 128/87; PULSE 74; RESP 18; TEMP 36.6; O2SAT 98
[2025-03-09 09:30] VITALS: BP 126/90; PULSE 68; RESP 18; TEMP 36.6; O2SAT 97
[2025-03-09] MEDS: OXYTOCIN/RINGERS LACTATE 30 UNITS/500 ML BAG 40 UNITS IV (09:30)
--- NOTE | 2025-03-09 10:39 | P.OP_ITS ---
Date of procedure: 03/09/25 Pre-op Diagnosis:: 1. IUP at 39w1d 2. Advanced maternal age 3. Grand multiparity 4. History of x 2 5. History of hemorrhage Post-op Diagnosis:: 1. IUP at 39w1d 2. Advanced maternal age 3. Grand multiparity 4. History of x 2 5. History of hemorrhage Procedure performed:: Repeat low transverse section Surgeon:: Reyna Mcintyre DO Digital Account Coordinator(s):: Shila Couch DO MANPOWER DEVELOPMENT ADVISOR:: Cindy Wright Anesthesia: GETA Estimated blood loss (mL): 600 Clinical Note:: Mrs Nathalia Olivo is a 44 yo [id number] at 39w1d who presents to [facility] for scheduled repeat . History x 2. History of hemorrhage with prior vaginal delivery and with miscarriage. complicated by AMA and grand multiparity. Operative findings:: 1. Live female baby, weighing 6 lb 5 oz, name undecided at time of delivery. Apgars 8 (1 min), 9 (5 min) 2. Omentum adhered to anterior abdominal wall 3. Thin lower uterine segment Operative note:: The risks, benefits and alternatives of the procedure were reviewed with the patient. Informed consent was obtained. Patient was taken to the operating room where spinal anesthesia was placed. The patient received 2 grams of Ancef preoperatively. Patient was placed in dorsal supine position with a leftward t ilt. SCDs in place. Farris catheter was inserted and draining clear urine prior to the start of the procedure. heart tones were obtained. Patient was then prepped and draped in normal sterile fashion. Allis clamp test was performed to ensure adequate anesthesia. A Pfannenstiel skin incision was made 2 cm above pubic symphysis, above prior Pfannenstiel scar. This was carried through to underlying layer of fascia. Fascia was incised in midline, extended laterally with Sierra scissors. Superior aspect of fascial incision was grasped with two Scout clamps, elevated up, and rectus muscle dissected off bluntly and sharply with Sierra scissors. The rectus muscle was then in the midline and the peritoneum was entered bluntly with a digit. Peritoneal incision was then extended superiorly and inferiorly with good visualization of the bladder. Douglas retractor was inserted. The lower uterine segment was incised in a transverse fashion. Clear amniotic fluid was noted. Head was delivered without difficulty. Remainder of body was delivered without difficulty. Mouth and nares were bulb suctioned. Spontaneous cry was noted. Delayed cord clamping was performed for 60 seconds. The umbilical cord was clamped and cut. The infant was handed to awaiting pediatric staff in stable condition. Dr. Perera was present. Apgars were 8(1 min), 9(5 min). Cord blood was obtained. Gentle traction on the umbilical cord and uterine fundal massage delivered the placenta. Placenta was intact. Uterus was cleared of all clots and debris with a moist laparotomy sponge. Corners of the uterine incision were grasped with Allis clamps. The uterine incision was reapproximated with # 1 Vicryl suture in a running, locked stitch. Second layer of the same stitch was used to imbricate the incision. Hemostasis was noted. Posterior cul-de-sac was cleaned with moist laparotomy sponge. Gutters cleared of all clots and debris with a moist laparotomy sponge. Reinspection of the lower uterine segment demonstrated small amount of oozing. Surgicel powder was applied over uterine incision. Hemostasis was noted. At this point all instruments and sponges were removed from the pelvis.? The peritoneum was grasped with Yusra clamps x 3. The peritoneum was reapproximated with 0 Vicryl suture in a running stitch. The corners of the fascia were grasped with Scout clamps, and the fascia was reapproximated with two # 1 Vicryl suture overlapped to the right of midline. Subcutaneous tissue was irrigated with clear return of fluids. The subcutaneous tissue was reapproximated with 3-0 Vicryl. The skin was reapproximated with Insorb monica. Telfa was placed over closed Pfannenstiel skin incision. At the end of the procedure, the uterus was firm with minimal vaginal bleeding. Patient tolerated the procedure well. Instrument, sponges and needle counts were correct x 2. Mom and baby were transported to recovery room in stable condition. Condition: stable Disposition: floor Specimens:: 1. Cord blood Complications:: None
[2025-03-09] MEDS: ACETAMINOPHEN 500MG TAB 1000 MG PO ×2 (11:47→17:18)
--- NOTE | 2025-03-09 12:24 | P.PNANES_ITS ---
[facility] Anesthesia Record Part II Anesthesia Record Part II Discharge Time: 09:30 Destination: Medical Surgical Department PACU nurse assessment reviewed?: Yes Patient Condition:: Good Anesthesia Complications:: None Swallowing reflex intact?: Yes Airway Patency: Patent Cyanosis?: No Blood Pressure: 126/90 SaO2: 97 Respiratory Rate: 18 Pulse Rate: 68 Temperature: 97.8 F Mental Status: Alert & Oriented Pain level:: 2 Nausea and/or vomitting:: None Intake, IV Amount: 0 Hydration: Adequate
[2025-03-09 12:25] VITALS: BP 126/90; PULSE 68; RESP 18; TEMP 36.6; O2SAT 97
[2025-03-09 13:36] LABS: Microscopic,Cath URINE MICROSCOPIC (MICROSCOPIC)
[2025-03-09] MEDS: KETOROLAC 30MG/ML VIAL 30 MG IV ×2 (14:55→21:20)
[2025-03-09] MEDS: PRENATAL MULTIVITAMIN W/IRON 1 EACH PO (17:18)
[2025-03-09 19:03] LABS: Appearance,Urine/Cath CLEAR (Clear); Bilirubin,Cath Negative (Negative); Blood, Urine/Cath Negative (Negative); Color,Urine/Cath YELLOW (Yellow); Glucose,Urine/Cath (UA) Negative (Negative); Ketones,Urine/Cath Negative (Negative); Leukocyte Esterase,Cath Negative (Negative); Nitrate,Cath Negative (Negative); PH,Urine/Cath 7.5 (5.0-8.5); Protein,Urine/Cath Negative (Negative); Specific Gravity, Urine/Cath 1.010 (1.005-1.030); Urobilinogen,Cath 0.2 EU/dl (0.2)
[2025-03-09] MEDS: SENNA 8.6MG TABLET 8.6 MG PO (21:21)
[2025-03-09] MEDS: LANOLIN CREAM 40GM TP (21:21)
[2025-03-10] MEDS: KETOROLAC 30MG/ML VIAL 30 MG IV (05:01)
[2025-03-10] MEDS: ACETAMINOPHEN 500MG TAB 1000 MG PO ×2 (05:02→10:43)
[2025-03-10 05:30] LABS: Hematocrit 29.3 % (37.0-47.0); Immature Granulocytes % 0.3 %; Mean Corpuscular HGB Conc 33.4 g/dL (31.8-35.4); Mean Corpuscular Hemoglobin 30.2 pg (27.0-31.2); Mean Corpuscular Volume 90.2 fl (81-99); Nucleated Red Blood Cells % 0 %; Platelet Count 150 K/mm3 (142-424); Red Blood Count 3.25 M/mm3 (4.20-5.40); Red Cell Distribution Width-SD 42.6 fL; White Blood Count 5.8 K/mm3 (4.8-10.8)
[2025-03-10 05:50] LABS: Hemoglobin 9.8 g/dL (12.2-16.2)
[2025-03-10 08:48] VITALS: BP 105/67; PULSE 76; RESP 17; TEMP 36.7; O2SAT 100
--- NOTE | 2025-03-10 09:29 | EXP.DC.SUM ---
General Admission date:: 03/09/25 Discharge date: 03/10/25 HPI HPI HPI: POD # 1 s/p RLTCS Feeling well. Pain controlled. Breast feeding. Lochia is appropriate. Voiding without difficulty and passing flatus. Tolerating regular diet. Denies fever/chills, chest pain and shortness of breath. No headaches, vision changes, lightheadedness/dizziness. No lower extremity swelling. Ambulating well ad isabella. Hospital Course Hospital Course Hospital Course: Mrs Nathalia Olivo is a 44 yo [id number] who presents to [facility] for scheduled repeat . History x 2. History of hemorrhage with prior vaginal delivery and with miscarriage. complicated by AMA and grand multiparity. She underwent repeat on 03/09/25. She delivered a live female baby, Nathalia, weighing 6 lb 5 oz. Apgars 8 (1 min), 9 (5 min). She did well /postoperatively. Pain controlled. Breast feeding. Light lochia. Voiding without difficulty and passing flatus. Tolerating regular diet. Denies fever/chills, chest pain and shortness of breath. No headaches, dizziness/lightheadedness or vision changes. Vital signs stable, afebrile. Heart regular rate and rhythm. Lungs clear to auscultation. Abdomen soft, nontender. No lower extremity swelling. Ambulating well ad isabella. Normal hospital course. She was discharged to home on POD # 1 with instructions to follow-up in the office in 2 weeks or sooner if needed. Exam Data for Last 24 hours Vital signs and Labs for Last 24 Hours: Temp Pulse Resp BP Pulse Ox O2 Del Method 98.0 F 76 17 105/67 L 100 Room Air 03/10/25 08:48 03/10/25 08:48 03/10/25 08:48 03/10/25 08:48 03/10/25 08:48 03/10/25 08:48 Laboratory Results - last 24 hr 03/09/25 07:30: Urine Color Yellow, Urine Appearance Clear, Urine pH 7.5, Ur Specific [place] 1.010, Urine Protein Negative, Urine Glucose (UA) Negative, Urine Ketones Negative, Urine Blood Negative, Urine Nitrate Negative, Urine Bilirubin Negative, Urine Urobilinogen 0.2, Ur Leukocyte Esterase Negative, Urine RBC None, Urine WBC None, Ur Squamous Epith Cells None, Urine Bacteria None 03/10/25 05:04: WBC 5.8, RBC 3.25 L, Hgb 9.8 L D, Hct 29.3 L, MCV 90.2, MCH 30.2, MCHC 33.4, RDW 13.0, Plt Count 150, MPV 9.6, Neut % (Auto) 62.7, Lymph % (Auto) 27.3, Anson % (Auto) 8.5, Eos % (Auto) 0.9, Baso % (Auto) 0.3, Neut # (Auto) 3.6, Lymph # (Auto) 1.6, Anson # (Auto) 0.5, Eos # (Auto) 0.1, Baso # (Auto) 0.0, Screen Negative, Baby's Rh Status Positive I & O for Last 24 hours: Intake & Output 03/07/25 03/08/25 03/09/25 03/10/25 23:59 23:59 23:59 23:59 Intake Total 1417.333 / 1417.333 Output Total 800 / 800 Balance 617.333 / 617.333 Weight 155 lb Constitutional Constitutional: no acute distress and cooperative *Routine HEENT Exam Head: Present normocephalic and atraumatic Eye: Present conjunctivae pink ENT: Present mucous membranes moist *Routine Neck Exam Neck: Present full ROM *Routine Respiratory Exam Respiratory: Present CTA bilaterally and normal respiratory effort *Routine Cardiovascular Exam Cardiovascular: Present RRR *Routine Abdominal Exam Abdominal: Present soft and normoactive bowel sounds; Absent tenderness or distended Comments: Pfannenstiel incision clean/dry/intact *Routine Rectal Exam Patient deferred: visual exam *Routine Exam Patient deferred: external exam *Routine Extremities Exam Extremities: Present full ROM; Absent edema or calf tenderness *Routine Neurological Exam Neurological: Present alert, moving all extremities and normal speech Routine Psychiatric Exam Psychiatric: Present normal affect and cooperative Results Data Completed and Pending Labs on day of discharge: Labs from last 24 hours 03/10/25 03/09/25 05:04 07:30 WBC 5.8 RBC 3.25 L Hgb 9.8 L D Hct 29.3 L MCV 90.2 MCH 30.2 MCHC 33.4 RDW 13.0 Plt Count 150 MPV 9.6 Neut % (Auto) 62.7 Lymph % (Auto) 27.3 Anson % (Auto) 8.5 Eos % (Auto) 0.9 Baso % (Auto) 0.3 Neut # (Auto) 3.6 Lymph # (Auto) 1.6 Anson # (Auto) 0.5 Eos # (Auto) 0.1 Baso # (Auto) 0.0 Urine Color Yellow Urine Appearance Clear Urine pH 7.5 Ur Specific [place] 1.010 Urine Protein Negative Urine Glucose (UA) Negative Urine Ketones Negative Urine Blood Negative Urine Nitrate Negative Urine Bilirubin Negative Urine Urobilinogen 0.2 Ur Leukocyte Esterase Negative Urine RBC None Urine WBC None Ur Squamous Epith Cells None Urine Bacteria None Screen Negative Baby's Rh Status Positive DS: Diagnosis Discharge Diagnosis (1) S/P : Status: Acute Code(s): Z98.891 - History of uterine scar from previous surgery (2) AMA (advanced maternal age) multigravida 35+: Status: Acute Code(s): O09.529 - Supervision of elderly multigravida, unspecified trimester Qualifiers: Trimester: second trimester Qualified Code(s): O09.522 - Supervision of elderly multigravida, second trimester (3) Grand multiparity: Status: Acute Code(s): Z64.1 - Problems related to multiparity (4) Tenriism ancestry: Status: Acute (5) History of : Status: Acute Code(s): Z98.891 - History of uterine scar from previous surgery Problem details: x 2 (6) History of hemorrhage: Status: Acute Code(s): Z87.59 - Personal history of other complications of , childbirth and the puerperium Meds Home Medications and Allergies Home Medications ?Medication ?Instructions ?Recorded ?Confirmed ?Type ibuprofen 800 mg tablet 800 mg PO Q8H PRN pain #20 tabs 03/10/25 Rx oxycodone 5 mg tablet 5 mg PO Q4HP PRN Moderate Pain 03/10/25 Rx (4-6) #20 tabs New Prescriptions to Start Prescriptions: ibuprofen Canan,Reyna oxycodone Canan,Reyna Allergies Allergy/AdvReac Type Severity Reaction Status Date / Time No Known Allergies Allergy Verified 03/02/25 11:19 Discharge Plan Disposition Patient Disposition: Home, Self-Care Condition: Good Discharge Order Discharge Orders: Discharge Order (Routine); Ordered 03/10/25 Ordered By: Reyna Mcintyre Follow up Plan Follow up with: Reyna Mcintyre DO [Staff Physician, [employer]] - 03/30/25 10:00 am Prescriptions/Medication Reconciliation: New oxycodone 5 mg Tablet 5 mg PO Q4HP PRN (Reason: Moderate Pain (4-6)) Qty: 20 0RF ibuprofen 800 mg tablet 800 mg PO Q8H PRN (Reason: pain) Qty: 20 0RF Problem Reconciliation Problems Reviewed?: Yes Patient Discharge Instructions ACTIVITY: Limited activity DIET: regular diet Additional Instructions: Discharge: 1. Take 800 mg Ibuprofen every 8 hours as needed for pain. You can also take 500-1000 mg of Tylenol in between doses, every 6-8 hours. If pain persists you can take Oxycodone 5 mg, 1 tablet every 4-6 hours or longer as needed. 2. Nothing in the vagina for 6 weeks - no intercourse, douching or tampons. No tub baths/hot tubs or swimming pools - Drink plenty of fluids. - No strenuous activity - Don't lift anything heavier than your for 6 weeks 3. Reasons to return to L&D or call On-Call doctor - fever (greater than 100.4) - heavy vaginal bleeding (soaking through 1 pad in less than 2 hours) - vaginal discharge (malodorous and/or purulent) - severe headaches not resolved by medication or rest 4. depression/blues - Normal to feel anxious/overwhelmed for first 2 weeks - Talk to your doctor if: severe anxiety, trouble bonding with baby, withdrawing from other family members, thoughts of harming yourself or others Patient Instructions: Depression, Hemorrhage, DI for , DI for Pre-eclampsia, [facility] Post Discharge Instructions Print Language: Chinese Providers Primary Care Provider: Provider,Referral Admit Provider: Reyna Mcintyre Attending Provider: Reyna Mcintyre
[2025-03-10] MEDS: RHO(D) IMMUNE GLOBULIN 1,500 UNIT (300MCG) SYRINGE 300 MCG IM (10:19)
[2025-03-11 09:29] LABS: Hepatitis B Surface Antigen Negative (Negative)
== END 2025-03-10 11:30 | disposition home or self-care (01) | DRG 788 ==
PROVIDERS: Admitting Provider Obstetrics & Gynecology; Visit Provider Obstetrics & Gynecology
PROC: 10D00Z1 Extraction of Products of Conception, Low, Open Approach (ICD-10-PCS; CPT 59514; principal; 2025-03-09 07:30)
DX: O34.211 Maternal care for low transverse scar from previous cesarean delivery (principal); Z37.0 Single live birth; Z3A.39 39 weeks gestation of pregnancy; O26.893 Other specified pregnancy related conditions, third trimester; Z67.41 Type O blood, Rh negative; Z87.59 Personal history of other complications of pregnancy, childbirth and the puerperium; Z23 Encounter for immunization
CPT/HCPCS: 51702; 59025; 81001; 85025; 85461; 86850; 87340; 94761; J0665; J0666; J0690; J1100; J1200; J1885; J2371; J2405; J2590; J2790; J3010